=== PATIENT | female | born 1985 | race Caucasian/White ===

== ENCOUNTER 2019-01-24 02:23 | Emergency (ER) | payer OTHER ==
[~2019-01-24] VITALS: Ht 167.6 cm; Wt 129.3 kg
[2019-01-24] MEDS ORDERED: IBUPROFEN200 MG PO (02:29)
[2019-01-24] MEDS ORDERED: ROBITUSSIN COU1 EACH PO (02:30)
[2019-01-24] MEDS ORDERED: ZITHROMAX250 MG PO (02:45)
== END 2019-01-24 02:56 | disposition home or self-care (01) ==
LOC: ED 02:23
DX: H66.91 Otitis media, unspecified, right ear (principal); Z88.0 Allergy status to penicillin
CPT/HCPCS: 99282

== ENCOUNTER 2020-04-07 00:02 | Inpatient (IN) | payer OTHER ==
--- OUTSIDE RECORDS SUMMARY | ~2020-04-07 | XMS | Encounter Summary ---
Demographics + + + | Address | [address] | | | [place] [address] | + + + | Home Phone | | + + + | Preferred Language | Unknown | + + + | Marital Status | | + + + | Gnosticism Affiliation | Unknown | + + + | Race | Unknown | + + + | Ethnic Group | Unknown | + + + Author + + + | Author | [facility] | | | and [place] | + + + | Organization | [facility] | | | and [place] | + + + | Address | Unknown | + + + | Phone | Unavailable | + + + Support + + + + + | Name | Relationship | Address | Phone | + + + + + | Catracho Posey | ECON | [address] | | | | | [place] [address] | | + + + + + Care Team Providers + +------+ + | Care Insulation Board Coater Operator Name | Role | Phone | + +------+ + PCP | Unavailable | + +------+ + Encounter Details +--------+ + + + + | Date | Type | Department | Care Team | Description | +--------+ + + + + | 10/08/ | Hospital | [facility] | Conversion | | | 2011 | Encounter | [facility] | Transaction, | | | | | ULTRASOUND [address] | Provider Unknown | | | | | [address] [facility] | [phone] | | | | | [place] | | | | | | [address] | Sherif Gunn MD | | | | | [phone] | [address] | | | | | | [address], | | | | | | [place] [address] | | | | | | [phone] | | | | | | | | +--------+ + + + + Social History + +-------+ +--------+------+ | Tobacco Use | Types | Packs/Day | Years | Date | | | | | Used | | + +-------+ +--------+------+ | Never Assessed | | | | | + +-------+ +--------+------+ + + + | Sex Assigned at | Date Recorded | | | | + + + | Not on file | | + + + + + + + | Job Start Date | Occupation | Industry | + + + + | Not on file | Not on file | Not on file | + + + + + + + + | Travel History | Travel Start | Travel End | + + + + + + | No recent travel history available. | + + documented as of this encounter Plan of Treatment Not on filedocumented as of this encounter Visit Diagnoses Not on filedocumented in this encounter"
--- OUTSIDE RECORDS SUMMARY | ~2020-04-07 | XMS | Encounter Summary ---
Demographics + + + | Address | [address] | | | [place] [address] | + + + | Home Phone | | + + + | Preferred Language | Unknown | + + + | Marital Status | | + + + | Congregational Affiliation | Unknown | + + + | Race | Unknown | + + + | Ethnic Group | Unknown | + + + Author + + + | Author | [facility] | | | and [place] | + + + | Organization | [facility] | | | and [place] | + + + | Address | Unknown | + + + | Phone | Unavailable | + + + Support + + + + + | Name | Relationship | Address | Phone | + + + + + | Catracho Posey | ECON | [address] | | | | | [place] [address] | | + + + + + Care Team Providers + +------+ + | Care Surgical Device Sales Representative Name | Role | Phone | + +------+ + PCP | Unavailable | + +------+ + Encounter Details +--------+ + + + + | Date | Type | Department | Care Team | Description | +--------+ + + + + | 10/13/ | Hospital | [facility] | Felicia Ritchie | | | 2011 | Encounter | [facility] | [address] | | | | | [address] | [address] | | | | | [address] | [place] [address] | | | | | [place], [place] | [phone] | | | | | [address] | | | | | | [phone] | | | +--------+ + + + [...] + + documented as of this encounter Discharge Summaries Felicia Ritchie - 10/15/2012 8:46 AM PSTFormatting of this note might be differen t from the original. Discharge Summaries by Felicia Ritchie MD at 10/15/12845 Author: Felicia Ritchie MD Service: (none) Author Type: Physician Filed: 10/15/12845 Date of Service: 10/15/12845 Status: Signed Solution Maker: Felicia Ritchie MD (Physician) Pt was seen and evaluated on L and D Triage area Pls see detailed note on chart Improved D/c home F/U on scheduled appt in office. documented in t his encounter Progress Notes Felicia Ritchie - 10/13/2012 7:13 PM PSTFormatting of this note might be differen t from the original. Progress Notes by Felicia Ritchie MD at 10/13/121912 Author: Felicia Ritchie MD Service: (none) Author Type: Physician Filed: 10/15/12 0846 Date of Service: 10/13/121912 Status: Addendum Solution Maker: Felicia Ritchie MD (Physician) Related Notes: Original Note by Felicia Ritchie MD (Physician) filed at 10/13/121914 [facility]: Obstetrics & Gynecology Note HISTORY OF PRESENT ILLNESS: Nancy Posey 27 y.o. OB History Grav Para Term Abortions TAB SAB Ect Mult Living 1 38weeks with a Patient's last menstrual period was 01/21/2012., and VIDHI 10/27/2012, by Last Menstru al Period presents to Labor and Delivery with increased swelling and borderline BPs Pt denies any contractions, leaking, bleeding. Good movements. Patient Active Problem List Diagnoses Supervision of normal first Rh negative, antepartum Oligohydramnios antepartum Decreased movement No current facility-administered medications on file prior to encounter. Current Outpatient Prescriptions on File Prior to Encounter Medication Sig Dispense Refill albuterol (PROVENTIL,VENTOLIN) 90 MCG/ACT inhaler Inhale 2 puffs into the lungs every 8 (eight) hours as needed for Wheezing. 17 g 2 Vit w/Kp-Wrmezpwxm-DG (PRENATE ELITE) 27-0.6-0.4 MG tablet Take 1 tablet by mo ut daily. 30 tablet 11 Allergies Allergen Reactions Penicillins Other (See Comments) Pt is unsure of reaction. Reaction occurred when she was young Past Medical History Diagnosis Date MTHFR (methylene THF reductase) deficiency and homocystinuria No past surgical history on file. Family History Problem Relation Age of Onset Cancer Mother 50 Breast cancer History Substance Use Topics Smoking status: Never Smoker Smokeless tobacco: Never Used Alcohol Use: No Filed Vitals: 10/13/12 1839 BP: 126/77 Pulse: 78 Lab Results Component Value Date WBC 8.0 10/13/2012 Lab Results Component Value Date RBC 4.03 10/13/2012 Lab Results Component Value Date HCT 33.6* 10/13/2012 Lab Results Component Value Date HGB 11.6 10/13/2012 Lab Results Component Value Date PLT 305 10/13/2012 Lab Results Component Value Date ABORH Value: A NEGATIVE Testing performed at [facility], [address] [place] [address] 04/08/2012 Complete ROS done- all systems neg except as noted in HPI above PHYSICAL EXAMINATION BP 126/77 | Pulse 78 | LMP 01/21/2012 | ? Yes GENERAL: The patient is well oriented to time, person, and place. HEENT: Normocephalic, atraumatic. NECK: Supple. No thyroid enlargement LUNGS: effort nl HEART: Pulse reg ABDOMEN: Fundal height term , Uterine contractions None ,FHT's 140 with good short term an d terminologist variability. Category 1. movement appreciated. Reactive NST Bowel sounds are present in all 4 quadrants. PELVIC- deferred EXTREMITIES: No pedal edema, NEUROLOGIC: No focal neurologic deficits.aaox3 SKIN: No rashes or jaundice are noted. Results Procedure Component Value Units Date/Time Uric acid [[id number]] Collected:10/13/121799 Specimen Information:Blood Updated:10/13/121848 URIC ACID 3.3 mg/dL BUN [[id number]] (Abnormal) Collected:10/13/121799 Specimen Information:Blood Updated:10/13/121848 BUN 6 (L) mg/dL Creatinine, serum [[id number]] Collected:10/13/121799 Specimen Information:Blood Updated:10/13/121848 CREATININE 0.54 mg/dL AST [[id number]] Collected:10/13/121799 Specimen Information:Blood Updated:10/13/121848 AST 11 U/L Lactate dehydrogenase [[id number]] Collected:10/13/121799 Specimen Information:Blood Updated:10/13/121848 LDH 132 U/L CBC w/no diff [[id number]] (Abnormal) Collected:10/13/121799 WBC 8.0 K/uL Updated:10/13/121821 RBC 4.03 M/uL HGB 11.6 g/dL HCT 33.6 (L) % MCV 83.5 fl MCH 28.9 pg MCHC 34.6 g/dL RDW SD 42.9 fl PLT 305 K/uL MPV 7.7 fl IMPRESSION/PLAN: No evidence of PEC at this time Pt discharged home Will start 24HUP F/U in 3d in office FELICIA RITCHIE MD 10/13/2012 documented in t his encounter Plan of Treatment Not on filedocumented as of this encounter Visit Diagnoses Not on filedocumented in this encounter"
--- OUTSIDE RECORDS SUMMARY | ~2020-04-07 | XMS | Encounter Summary ---
Demographics + + + | Address | [address] | | | [place] [address] | + + + | Home Phone | | + + + | Preferred Language | Unknown | + + + | Marital Status | | + + + | Yazidism Affiliation | Unknown | + + + | Race | Unknown | + + + | Ethnic Group | Unknown | + + + Author + + + | Author | [facility] | | | and [place] | + + + | Organization | [facility] | | | and [place] | + + + | Address | Unknown | + + + | Phone | Unavailable | + + + Support + + + + + | Name | Relationship | Address | Phone | + + + + + | Catracho Posey | ECON | [address] | | | | | [place] [address] | | + + + + + Care Team Providers + +------+ + | Care Lab Manager Name | Role | Phone | + +------+ + | No, Physician | PCP | Unavailable | + +------+ + Encounter Details +--------+ + + + + | Date | Type | Department | Care Team | Description | +--------+ + + + + | 02/28/ | Anesthesia | [place] [facility] | [facility] | | | 2017 | Event | [facility] | L, DO [address] | | | | | [address] | [place] | | | | | [place] | [address] | | | | | [address] | | | | | | [phone] | | | +--------+ + + + + Anesthesia Record + + + + + | Procedure Name | Responsible | Anesthesia Start | Anesthesia Stop Time | | | Anesthesiologist | Time | | + + + + + | LAPAROSCOPIC | Caio Tipton, | 02/28/18 1434 | 02/28/18 1535 | | CHOLECYSTECTOMY (N/A | DO | | | | Gallbladder) | | | | + + + + + +----+---+ + + | Da | T | Event | Comment | | te | i | | | | | m | | | | | e | | | +----+---+ + + | 03 | 1 | An Checkout | Pre-use anesthesia machine/equipment checkout. | | /3 | 4 | | | | 0/ | 2 | | | | 20 | 4 | | | | 18 | | | | +----+---+ + + | | 1 | Antibiotic | | | | 4 | Given | | | | 3 | | | | | 1 | | | +----+---+ + + | | 1 | An Start | Reassessment prior to anesthesia induction/procedure. | | | 4 | | | | | 3 | | | | | 4 | | | +----+---+ + + | | 1 | Preoxygenat | | | | 4 | ed | | | | 3 | | | | | 4 | | | +----+---+ + + | | 1 | An | | | | 4 | Induction | | | | 3 | | | | | 8 | | | +----+---+ + + | | 1 | An | | | | 4 | Intubation | | | | 3 | | | | | 8 | | | +----+---+ + + | | 1 | Pre-Procedu | | | | 4 | ral Timeout | | | | 5 | Completed | | | | 0 | | | +----+---+ + + | | 1 | First | | | | 4 | Inc/Proc St | | | | 5 | | | | | 2 | | | +----+---+ + + | | 1 | Breathing | | | | 5 | Spontaneous | | | | 2 | ly | | | | 9 | | | +----+---+ + + | | 1 | Oropharynx | | | | 5 | Suctioned | | | | 2 | | | | | 9 | | | +----+---+ + + | | 1 | Moving | | | | 5 | Purposefull | | | | 2 | y | | | | 9 | | | +----+---+ + + | | 1 | Extubated | | | | 5 | Awake | | | | 2 | | | | | 9 | | | +----+---+ + + | | 1 | an stop | | | | 5 | data | | | | 2 | | | | | 9 | | | +----+---+ + + | | 1 | An Stop | Patient handed off to recovery nurse. | | | 3 | | | | | 5 | | | +----+---+ + + | | 1 | | | | | 5 | | | | | 3 | | | | | 7 | | | +----+---+ + + +------+ | Meds | +------+ + +---------+ | Name | Total | + +---------+ | lidocaine 2% | 100 mg | + +---------+ | fentaNYL | 250 mcg | + +---------+ | propofol | 200 mg | + +---------+ | rocuronium 10 mg/mL | 30 mg | + +---------+ | dexamethasone 10 mg/mL | 8 mg | + +---------+ | ondansetron | 4 mg | + +---------+ | ketorolac (30 mg/mL) | 30 mg | + +---------+ | clindamycin in dextrose (CLEOCIN) | 900 mg | | IVPB 900 mg | | + +---------+ | lactated ringers (LR) infusion | 500 mL | + +---------+ + + | Name | + + | N2O Flow Rate (L/Min) | + + | O2 Flow Rate (L/Min) | + + | Insp O2 | + + | Exp N2O | + + | Exp SEV | + + | Exp ISO | + + | Exp MARGARET | + + | Air Flow Rate (L/Min) | + + + + | No blood administrations on file. | + + +--------+ + + + | Type | Details | Placement | Removal | +--------+ + + + | Periph | 02/26/18; 1750; Left; Mid; | 02/26/18 1750 by | 02/28/18 173 by | | eral | Antecubital; [id number] | Jemima Christian RN | Yandy Coy RN | | IV | catheter system; 20 gauge; | | | | | Hematology, Chemistry, | | | | | Coagulation; healing within | | | | | expectations; 02/28/18; 1735 | | | +--------+ + + + | Airway | Placement Date: 02/28/18; | 02/28/181437 by | 02/28/18 1529 by | | | Placement Time: 143 (created via | Ca[facility] Tipton, | [facility]io T[facility], | | | procedure documentation); Mask | DO | DO | | | Ventilation: EZ; Airway Grade: | | | | | 2a; Successful Technique: Mac; | | | | | Laryngoscope Blade Size: 3; | | | | | Attempts: 1; Airway Type: | | | | | endotracheal; Size: 7; Trauma: | | | | | none; Other Equipment: stylette; | | | | | Placement Check: exhaled CO2 | | | | | detection device, bilateral chest | | | | | rise; Removal Date: 02/28/18; | | | | | Removal Time: 1529 | | | +--------+ + + + | Read | 02/28/18; 1445; Right; upper; | 02/28/18 1445 by | 02/28/18 1740 by | | only - | abdomen; laparoscopic puncture; | Yandy Coy RN | Yandy Coy RN | | | 02/28/18; 1740 | | | | Incisi | | | | | on | | | | +--------+ + + + | Read | 02/28/18; 1510; abdomen; healing | 02/28/18 1510 by | 02/28/18 1740 by | | only - | within expectations; 02/28/18; | Jany Rider RN | Yandy Coy RN | | | 1740 | | | | Incisi | | | | | on | | | | +--------+ + + + documented in this encounter Social History + +-------+ +--------+------+ | Tobacco Use | Types | Packs/Day | Years | Date | | | | | Used | | + +-------+ +--------+------+ | Never Smoker | | | | | + +-------+ +--------+------+ + +---+---+---+ | Smokeless Tobacco: | | | | | Never Used | | | | + +---+---+---+ + + +---------+ + | Alcohol Use | Drinks/Week | oz/Week | Comments | + + +---------+ + | Yes | | | occasionally | + + +---------+ + + + + | Sex Assigned at [...] Not on filedocumented as of this encounter Procedures + +--------+ + + + | Procedure Name | Priori | Date/Time | Associated Diagnosis | Comments | | | ty | | | | + +--------+ + + + | ANE AIRWAY NOTE | Routin | 02/28/2018 | | Results for this | | | e | 2:46 PM | | procedure are in the | | | | PDT | | results section. | + +--------+ + + + documented in this encounter Results Anesthesia Airway Note (02/28/2018 2:46 PM PDT) + + + | Narrative | Performed At | + + + | [facility] DO 02/28/2018 14:47 Anesthesia Airway | | | Placement 02/28/2018 14:38 Preprocedure check: patient identified, | | | airway assessed, suction, patient reassessment prior to induction, | | | oxygen and airway equipment checked Mask ventilation: easy | | | Successful technique: Mac Laryngoscope blade size: 3 Airway | | | grade: 2a (Partial view of glottis) Other equipment: stylette | | | Attempts: 1 Airway type: endotracheal Size: 7 Cuffed: cuffed | | | Route, reference point: center of mouth Tube secured with: adhesive | | | tape Trauma: none Tube placement verification: carbon dioxide | | | detection and bilateral chest rise Performing provider: SAEED | | | CAIO Bro Electronically Signed by: Caio Tipton DO | | | ESig date/time: 02/28/2018 14:46 | | | | | + + + + + | Procedure Note | + + | Caio Tipton DO - 02/28/2018 2:46 PM PDT Anesthesia Airway Placement02/28/2018 | | 14:38Preprocedure check: patient identified, airway assessed, suction, patient | | reassessment prior to induction, oxygen and airway equipment checkedMask ventilation: | | easySuccessful technique: MacLaryngoscope blade size: 3 Airway grade: 2a (Partial view | | of glottis)Other equipment: styletteAttempts: 1Airway type: endotrachealSize: 7Cuffed: | | cuffedRoute, reference point: center of mouthTube secured with: adhesive tapeTrauma: | | noneTube placement verification: carbon dioxide detection and bilateral chest | | risePerforming provider: CAIO TIPTON LElectronically Signed by: Caio Tipton, | | ESig date/time: 02/28/2018 14:46 | |Attempts: 1 | |Airway type: endotracheal | |Size: 7 | |Cuffed: cuffed | |Route, reference point: center of mouth | |Tube secured with: adhesive tape | |Trauma: none | |Tube placement verification: carbon dioxide detection and bilateral chest rise | |Performing provider: CAIO TIPTON | | | | | |Electronically Signed by: Caio Tipton DO ESi date/time: 02/28/2018 14:46 | | | + + documented in this encounter Visit Diagnoses Not on filedocumented in this encounter Administered Medications + +--------+ +--------+------+------+ | Medication Order | MAR | Action | Dose | Rate | Site | | | Action | Date | | | | + +--------+ +--------+------+------+ | clindamycin in dextrose | Given | 02/29/20 | 900 mg | | | | (CLEOCIN) IVPB 900 mg 900 mg, | | 18 2:31 | | | | | Intravenous, Administer over 60 | | PM PDT | | | | | Minutes, 30 MIN PRE-OP, Starting | | | | | | | 02/28/18 at 1126, For 1 dose, | | | | | | | Indications: Biliary Tract | | | | | | | Infection, Infection | | | | | | + +--------+ +--------+------+------+ +---------+ +--------+ +---+ | New Bag | 02/29/20 | 900 mg | 50 mL/hr | | | | 18 2:20 | | | | | | PM PDT | | | | +---------+ +--------+ +---+ +---+---+ | | | +---+---+ + +-------+ +------+---+---+ | dexamethasone (DECADRON) 10 | Given | 02/29/20 | 8 mg | | | | mg/mL injection Intravenous, | | 18 3:19 | | | | | PRN, Starting 02/28/18 at | | PM PDT | | | | | 1519, Anesthesia Intra-op | | | | | | + +-------+ +------+---+---+ +---+---+ | | | +---+---+ + +-------+ +--------+---+---+ | fentaNYL (PF) injection | Given | 02/29/20 | 50 mcg | | | | Intravenous, PRN, Pain, Starting | | 18 3:18 | | | | | 02/28/18 at 1435, Anesthesia | | PM PDT | | | | | Intra-op | | | | | | + +-------+ +--------+---+---+ +-------+ +---------+---+---+ | Given | 02/29/20 | 50 mcg | | | | | 18 2:47 | | | | | | PM PDT | | | | +-------+ +---------+---+---+ | Given | 02/29/20 | 100 mcg | | | | | 18 2:38 | | | | | | PM PDT | | | | +-------+ +---------+---+---+ +---+---+ | | | +---+---+ + +-------+ +-------+---+---+ | ketorolac (TORADOL) injection | Given | 02/29/20 | 30 mg | | | | Intravenous, PRN, Pain, Starting | | 18 3:19 | | | | | 02/28/18 at 1519, Anesthesia | | PM PDT | | | | | Intra-op | | | | | | + +-------+ +-------+---+---+ +---+---+ | | | +---+---+ + +---------+ +---+---+---+ | lactated ringers (LR) infusion | New Bag | 02/29/20 | | | | | at 10-100 mL/hr, Intravenous, | | 18 2:34 | | | | | CONTINUOUS, Starting Sat02/28/18 | | PM PDT | | | | | at 0945, TKO., Pre-op | | | | | | + +---------+ +---+---+---+ +---+---+ | | | +---+---+ + +-------+ +--------+---+---+ | lidocaine 2% injection PRN, | Given | 02/29/20 | 100 mg | | | | Starting Sat02/28/18 at 1438, | | 18 2:38 | | | | | Anesthesia Intra-op | | PM PDT | | | | + +-------+ +--------+---+---+ +---+---+ | | | +---+---+ + +-------+ +------+---+---+ | ondansetron (ZOFRAN) injection | Given | 02/29/20 | 4 mg | | | | Intravenous, PRN, Nausea, | | 18 3:19 | | | | | Vomiting, Starting Sat18 at | | PM PDT | | | | | 1519, Anesthesia Intra-op | | | | | | + +-------+ +------+---+---+ +---+---+ | | | +---+---+ + +-------+ +--------+---+---+ | propofol (DIPRIVAN) injection | Given | 02/29/20 | 200 mg | | | | Intravenous, PRN, Starting Sat | | 18 2:38 | | | | | 02/28/18 at 1438, Anesthesia | | PM PDT | | | | | Intra-op | | | | | | + +-------+ +--------+---+---+ +---+---+ | | | +---+---+ + +-------+ +-------+---+---+ | rocuronium (ZEMURON) injection | Given | 02/29/20 | 30 mg | | | | Intravenous, PRN, Starting Fri | | 18 2:38 | | | | | 02/28/18 at 1438, Anesthesia | | PM PDT | | | | | Intra-op | | | | | | + +-------+ +-------+---+---+ +---+---+ | | | +---+---+ documented in this encounter"
--- OUTSIDE RECORDS SUMMARY | ~2020-04-07 | XMS | Encounter Summary ---
Demographics + + + | Address | [address] | | | [place] [address] | + + + | Home Phone | | + + + | Preferred Language | Unknown | + + + | Marital Status | | + + + | Denominational Affiliation | Unknown | + + + | Race | Unknown | + + + | Ethnic Group | Unknown | + + + Author + + + | Author | [facility] | | | and [place] | + + + | Organization | [facility] | | | and [place] | + + + | Address | Unknown | + + + | Phone | Unavailable | + + + Support + + + + + | Name | Relationship | Address | Phone | + + + + + | Catracho Posey | ECON | [address] | | | | | [place] [address] | | + + + + + Care Team Providers + +------+ + | Care Recreation Engineer Name | Role | Phone | + +------+ + | No, Physician | PCP | Unavailable | + +------+ + Encounter Details +--------+ + + + + | Date | Type | Department | Care Team | Description | +--------+ + + + + | 09/30/ | Orders Only | [facility] | Sherif Gunn, | | | 2011 | | [facility]OC[facility] | MD [address] | | | | | [facility] | [address] | | | | | [address] | [place] [address] | | | | | [address], | [phone] | | | | | [place] [address] | | | | | | [phone] | | | +--------+ + + + [...] + + documented as of this encounter Progress Notes Sherif Gunn MD - 09/30/2012 11:43 AM PDT Progress Notes by Sherif Gunn MD at 09/30/12 1143 Author: Sherif Gunn MD Service: (none) Author Type: Physician Filed: 10/05/122013 Encounter Date: 09/30/2012 Status: Signed Tariff Compiling Clerk: Sherif Gunn MD (Physician) . No HB. U/S EFW 7lbs 5oz, EFW 3316g, 80th%tile, ANIL 14.4 cm, placenta anterior. GBS c ollected today. Taking PNV daily. (+) movement. May have some spotting from exam today . F/u in one wk. documented in thi s encounter Plan of Treatment Not on filedocumented as of this encounter Procedures + +--------+ + + + | Procedure Name | Priori | Date/Time | Associated Diagnosis | Comments | | | ty | | | | + +--------+ + + + | STREP B SCREEN | Routin | 09/30/2012 | | Results for this | | | e | 12:11 PM | | procedure are in the | | | | PDT | | results section. | + +--------+ + + + documented in this encounter Results Strep B screen (09/30/2012 12:11 PM PDT) + + | Specimen | + + | | + + + + + | Narrative | Performed At | + + + | Specimen Description VAGINAL/RECTAL SWAB | EXTERNAL LAB | | Testing performed at | | | [facility];[address];[place] [address] CULTURE | | | NO GROUP B STREP ISOLATED | | | Testing performed at [facility];[address] | | [address] [facility];[place] [address] REPORT STATUS | | | 10/03/2012 FINAL | | + + + + +---------+ + + | Performing | Address | City/State/Zipcode | Phone Number | | Organization | | | | + +---------+ + + | EXTERNAL LAB | | | | + +---------+ + + documented in this encounter Visit Diagnoses Not on filedocumented in this encounter"
--- OUTSIDE RECORDS SUMMARY | ~2020-04-07 | XMS | Encounter Summary ---
Demographics + + + | Address | [address] | | | [place] [address] | + + + | Home Phone | | + + + | Preferred Language | Unknown | + + + | Marital Status | | + + + | Sabianist Affiliation | Unknown | + + + | Race | Unknown | + + + | Ethnic Group | Unknown | + + + Author + + + | Author | [facility] | | | and [place] | + + + | Organization | [facility] | | | and [place] | + + + | Address | Unknown | + + + | Phone | Unavailable | + + + Support + + + + + | Name | Relationship | Address | Phone | + + + + + | Catracho Posey | ECON | [address] | | | | | [place] [address] | | + + + + + Care Team Providers + +------+ + | Care Cafe Assistant Name | Role | Phone | + +------+ + PCP | Unavailable | + +------+ + Encounter Details +--------+ + + + + | Date | Type | Department | Care Team | Description | +--------+ + + + + | 12/28/ | Hospital | [facility] | Erin Eason | | | 2017 | Encounter | [facility] | [address] | | | | | [facility] [address] | [facility] [facility], | | | | | [address]TH [facility] [place], | [place] [address] | | | | | [place] [address] | [phone] | | | | | [phone] | | | +--------+ + + + [...]
--- OUTSIDE RECORDS SUMMARY | ~2020-04-07 | XMS | Encounter Summary ---
Demographics + + + | Address | [address] | | | [place] [address] | + + + | Home Phone | | + + + | Preferred Language | Unknown | + + + | Marital Status | | + + + | Adventist Affiliation | Unknown | + + + | Race | Unknown | + + + | Ethnic Group | Unknown | + + + Author + + + | Author | [facility] | | | and [place] | + + + | Organization | [facility] | | | and [place] | + + + | Address | Unknown | + + + | Phone | Unavailable | + + + Support + + + + + | Name | Relationship | Address | Phone | + + + + + | Catrahco Daniel | ECON | [address] | | | | | [place] [address] | | + + + + + Care Team Providers + +------+ + | Care Supervisor Soakers Name | Role | Phone | + +------+ + | No, Physician | PCP | Unavailable | + +------+ + Encounter Details +--------+ + + + + | Date | Type | Department | Care Team | Description | +--------+ + + + + | 10/08/ | Orders Only | [facility] | Sherif Gunn, | | | 2011 | | ASSOCIATED | MD [address] | | | | | [facility] | [address] | | | | | [address] | [place] [address] | | | | | [address] [place], | [phone] | | | | | [place] [address] | | | | | | [phone] | | | +--------+ + + + [...] | + +--------+ + + + | US BIOPHYSICAL | Routin | 10/08/2012 | | Results for this | | PROFILE WO NON | e | 12:59 PM | | procedure are in the | | STRESS | | PST | | results section. | + +--------+ + + + documented in this encounter Results US BPP wo Non Stress (10/08/2012 12:59 PM PST) + + | Specimen | + + | | + + + + + | Narrative | Performed At | + + + | RAJANI DANIEL US BIOPHYSICAL PROFILE WO NON STRESS TESTING | | | 10/08/2012 12:24 PM HISTORY: 27 years. Female. | | | Oligohydramnios. Biophysical profile. one. VIDHI of | | | October 27, 2012 at 37 weeks and two days. TECHNIQUE: Imaging | | | was performed using a curved array transabdominal transducer. | | | Grayscale, color flow and M-mode techniques were utilized. | | | COMPARISON: October 05, 2012 FINDINGS: The position: | | | Cephalic. Placental position: Anterior. Amniotic fluid index: | | | 11.3 cm. Previous amniotic fluid index measured 7.7 cm on 10/05/12. | | | The largest single pocket of amniotic fluid measures 4.9 cm. | | | BIOPHYSICAL PROFILE: Movement = 2 Tone = 2 Breathing = 2 AFV = 2 | | | Biophysical Profile Score = 8/8 heart rate = 132 beats/min | | | IMPRESSION: 1. Biophysical Profile Score = 8/8 2. heart | | | rate = 132 beats/min 3. Amniotic fluid index: 11.3 cm. | | | | | + + + + + | Procedure Note | + + | Chadd Torrez Conversion - 07/25/2019 2:44 AM PDT [facility] WRIGHT BIOPHYSICAL | | PROFILE WO NON STRESS ERALPDF25/7/2012 12:24 PM HISTORY:27 years. Female. | | Oligohydramnios. Biophysical profile. one. VIDHI of October 27, 2012 at 37 | | weeks and two days. TECHNIQUE:Imaging was performed using a curved array transabdominal | | transducer. Grayscale, color flow and M-mode techniques were utilized. | | COMPARISON:October 05, 2012 FINDINGS:The position: Cephalic.Placental position: | | Anterior. Amniotic fluid index: 11.3 cm.Previous amniotic fluid index measured 7.7 cm on | | 10/05/12.The largest single pocket of amniotic fluid measures 4.9 cm. BIOPHYSICAL | | PROFILE:Movement = 2Tone = 2Breathing = 2AFV = 2Biophysical Profile Score = 8/8 | | heart rate = 132 beats/min IMPRESSION:1. Biophysical Profile Score = 8/82. heart | | rate = 132 beats/min3. Amniotic fluid index: 11.3 cm. | | | |FINDINGS: | |The position: Cephalic. | |Placental position: Anterior. | | | |Amniotic fluid index: 11.3 cm. | |Previous amniotic fluid index measured 7.7 cm on 10/05/12. | |The largest single pocket of amniotic fluid measures 4.9 cm. | | | | | |BIOPHYSICAL PROFILE: | |Movement = 2 | |Tone = 2 | |Breathing = 2 | |AFV = 2 | |Biophysical Profile Score = 8/8 | | | | heart rate = 132 beats/min | | | |IMPRESSION: | |1. Biophysical Profile Score = 8/8 | |2. heart rate = 132 beats/min | |3. Amniotic fluid index: 11.3 cm. | | | | | + + documented in this encounter Visit Diagnoses Not on filedocumented in this encounter"
--- OUTSIDE RECORDS SUMMARY | ~2020-04-07 | XMS | Clinical Summary ---
Demographics + + + | Address | [address] | | | [place] [address] | + + + | Home Phone | | + + + | Preferred Language | Unknown | + + + | Marital Status | Single | + + + | Religion Affiliation | Unknown | + + + | Race | Unknown | + + + | Ethnic Group | Unknown | + + + Author + + + | Author | [facility] (Historical as of | | | 07-18-19) | + + + | Organization | [facility] (Historical as of | | | 07-18-19) | + + + | Address | Unknown | + + + | Phone | Unavailable | + + + Support + + + + + | Name | Relationship | Address | Phone | + + + + + | Rajani Daniel | ECON | [address], | | | | | [place] [address] | | + + + + + Care Team Providers + +------+ + | Care Fuel Conversion Technician Name | Role | Phone | + +------+ + | Dr. Jignesh | PP | Unavailable | + +------+ + Allergies + + + + + + | Active Allergy | Reactions | Severity | Noted | Comments | | | | | Date | | + + + + + + | Penicillins | Other (See Comments) | Medium | 04/08/20 | Pt is unsure of | | | | | 12 | reaction. Reaction | | | | | | occurred when she | | | | | | was young | + + + + + + Current Medications + + +-------+---------+------+------+-------+ | Prescription | Sig. | Disp. | Refills | Star | End | Statu | | | | | | t | Date | s | | | | | | Date | | | + + +-------+---------+------+------+-------+ | ferrous sulfate | Take 325 mg by mouth | | | | | Activ | | 325 (65 FE) MG | daily with | | | | | e | | tablet | breakfast. | | | | | | + + +-------+---------+------+------+-------+ | methylfolate | Take 7.5 mg by mouth | | | | | Activ | | (DEPLIN) 7.5 MG TABS | daily. | | | | | e | + + +-------+---------+------+------+-------+ Active Problems + + + | Problem | Noted Date | + + + | IUD check up | 01/20/2013 | + + + + + | Overview: Mirena in place; mild discomfort with intercourse | | when he is on top and with deep penetration; can consider US if | | sxs persist/worsen | + + + + + | LSIL (low grade squamous intraepithelial lesion) on Pap smear | 01/20/2013 | + + + | Encounter for IUD insertion | 12/17/2012 | + + + + + | Overview: Mirena insert 12/17/2012 | + + Resolved Problems + + + + | Problem | Noted | Resolved | | | Date | Date | + + + + | Transient hypertension of | 10/20/20 | | | | 12 | 3 | + + + + | Oligohydramnios antepartum | 10/06/20 | | | | 12 | 3 | + + + + | Decreased movement | 10/06/20 | | | | 12 | 3 | + + + + | Rh negative, antepartum | 04/09/20 | | | | 12 | 3 | + + + + | Supervision of normal first | 04/08/20 | | | | 12 | 3 | + + + + Immunizations +------+ + + | Name | Dates Previously Given | Next Due | +------+ + + | Tdap | 10/27/2012 | | +------+ + + Family History + + +------+ + | Medical History | Relation | Name | Comments | + + +------+ + | Other (see comments) | Brother | | MTHR | + + +------+ + | Cancer | Mother | | Breast cancer | + + +------+ + + +------+ + + | Relation | Name | Status | Comments | + +------+ + + | Brother | | | | + +------+ + + | Father | | Alive | | + +------+ + + | Maternal Grandfather | | | | + +------+ + + | Maternal Grandmother | | | | + +------+ + + | Mother | | | | + +------+ + + | Paternal Grandfather | | | | + +------+ + + | Paternal Grandmother | | | | + +------+ + + Social History + +-------+ +--------+------+ [...] + +---------+ + | Alcohol Use | Drinks/We | oz/Week | Comments | | | ek | | | + + +---------+ + | No | | | | + + +---------+ + + + + | Sex Assigned at | Date Recorded | | | | + + + | Not on file | | + + + Last Filed Vital Signs + + + + | Vital Sign | Reading | Time Taken | + + + + | Blood Pressure | 120/78 | 01/20/2013 1:37 PM PST | + + + + | Pulse | 81 | 10/28/2012 7:45 AM PST | + + + + | Temperature | 36.9 C (98.5 F) | 10/28/2012 7:45 AM PST | + + + + | Respiratory Rate | 20 | 10/28/2012 7:45 AM PST | + + + + | Oxygen Saturation | 100% | 10/26/2012 2:43 PM PST | + + + + | Inhaled Oxygen | - | - | | Concentration | | | + + + + | Weight | 113.4 kg (250 lb) | 01/20/2013 1:37 PM PST | + + + + | Height | 167.6 cm (5' 6") | 01/20/2013 1:37 PM PST | + + + + | Body Mass Index | 40.35 | 01/20/2013 1:37 PM PST | + + + + Plan of Treatment + + + + + | Health Maintenance | Due Date | Last Done | Comments | + + + + + | Cervical Cancer | | 12/15/2012 | | | Screening (Pap) | 8 | | | + + + + + | Vaccine: Influenza | | | | | (Season Ended) | 0 | | | + + + + + | Vaccine: | | 10/27/2012 | | | Dtap/Tdap/Td (2 - | 2 | | | | Td) | | | | + + + + + Results Not on filefrom Last 3 Months Insurance + +--------+ +------+-------+ + | Payer | Benefi | Subscriber | Type | Phone | Address | | | t Plan | ID | | | | | | / | | | | | | | Group | | | | | + +--------+ +------+-------+ + | MEDICAID | MEDICA | [id number] | | | [address] | | | [place] | | | | [place] | | | FAMILY | | | | [address] | | | | | | | | | | [employer]AN[employer] | | | | | | | NG | | | | | | | SERVIC | | | | | | | ES | | | | | | | ONLY | | | | | + +--------+ +------+-------+ + + +--------+ +--------+ + + | Guarantor Name | Accoun | Relation to | Date | Phone | Billing Address | | | t Type | Patient | of | | | | | | | | | | + +--------+ +--------+ + + | RAJANI DANIEL | Person | Self | [birth year] | Home: | [address] | | | al/Fam | | 1984 | [phone] | [place] | | | [place] | | | [phone] | [address] | + +--------+ +--------+ + +
--- OUTSIDE RECORDS SUMMARY | ~2020-04-07 | XMS | Encounter Summary ---
Demographics + + + | Address | [address] | | | [place] [address] | + + + | Home Phone | | + + + | Preferred Language | Unknown | + + + | Marital Status | | + + + | Islam Affiliation | Unknown | + + + | Race | Unknown | + + + | Ethnic Group | Unknown | + + + Author + + + | Author | [facility] | | | and [place] | + + + | Organization | [facility] | | | and [place] | + + + | Address | Unknown | + + + | Phone | Unavailable | + + + Support + + + + + | Name | Relationship | Address | Phone | + + + + + | Catracho Posey | ECON | [address] | | | | | [place] [address] | | + + + + + Care Team Providers + +------+ + | Care Car Changer Name | Role | Phone | + +------+ + | No, Physician | PCP | Unavailable | + +------+ + Encounter Details +--------+ + + + + | Date | Type | Department | Care Team | Description | +--------+ + + + + | 09/30/ | Orders Only | [facility] | Sherif Gunn, | | | 2010 | | ASSOCIATED | MD [address] | | | | | [facility] | [address] | | | | | [address] | [place] [address] | | | | | [address] [place] [address], | [phone] | | | | | [place] [address] | | | | | | [phone] | | | +--------+ + + + [...] + +--------+ + + + | US OB FOLLOW UP | Routin | 09/30/2012 | | Results for this | | TRANSABDOMINAL | e | 11:22 AM | | procedure are in the | | | | PDT | | results section. | + +--------+ + + + documented in this encounter Results US OB Follow Up Transabdominal (09/30/2012 11:22 AM PDT) + + | Specimen | + + | | + + + + + | Narrative | Performed At | + + + | Indication: Supervision of normal first . | | | History: Age: 27 years. : 1 Para: 0. | | | Dating: Stated EDC : | | | | | | EDC: 10/27/2012 GA by | | | stated EDC: 36w1d Current Scan On : | | | 09/30/2012 EDC: | | | 10/16/2012 | | | | | | GA BY CURRENT Scan :37w5d | | | Best Overall Assessment: 09/30/2012 EDC: | | | 10/27/2012 | | | | | | Assessed Ga : 36w1d The | | | calculation of the gestational age by current scan was based on BPD, | | | HC, AC and FL. The Best Overall Assessment is based on the stated | | | EDC. Anatomy Scan: Sierra gestation. | | | Biometry: Measurements used for the estimation of the | | | gestational age are bolded. BPD 93.4 | | | mm 95th% 38w0d (37w0d to | | | 39w0d) HC 333.1 mm | | | 67th% 38w0d (35w2d to 40w5d) AC | | | 343.9 mm >95th% | | | 38w2d (37w2d to 39w2d) FL 71.2 | | | mm 55th% 36w3d | | | (33w3d to 39w4d) OFD 116.3 mm | | | 64th% EFW (lbs/oz) 7 lbs 5 ozs EFW (g) | | | 3316 g 80th% | | | heart activity: present. heart rate: 130 bpm. | | | presentation: cephalic. Amniotic fluid: normal. ANIL 14.4 cm. | | | Placenta: anterior. Summary of Ultrasound Findings: | | | Transabdominal US. U/S machine: [employer]ick[employer]Tickets E8 - [employer] | | | for Women. U/S view: adequate. Report | | | Summary: Recommendations: LGA, EFW 3316 gms, 80%ile, with ANIL 14. | | | Vtx. AC is > 95%, but BPD is also 95%. | | + + + + + | Procedure Note | + + | Chadd Torrez Conversion - 07/25/2019 2:44 AM PDT Indication: Supervision of normal first | | . History: Age: 27 years. : 1 Para: | | 0. Dating:Stated EDC : | | EDC: 10/27/2012 GA by stated EDC: | | [id number] Scan On : 09/30/2012 | | EDC: 10/16/2012 | | GA BY CURRENT Scan :[id number] Overall | | Assessment: 09/30/2012 EDC: 10/27/2012 | | Assessed Ga : | | [id number] calculation of the gestational age by current scan was based on BPD, HC, AC | | and FL.The Best Overall Assessment is based on the stated | | EDC. Anatomy Scan:Sierra gestation.Biometry: Measurements | | used for the estimation of the gestational age are bolded.BPD 93.4 | | mm 95th% 38w0d (37w0d to 39w0d)HC 333.1 | | mm 67th% 38w0d (35w2d to 40w5d)AC 343.9 | | mm >95th% 38w2d (37w2d to 39w2d)FL 71.2 | | mm 55th% 36w3d (33w3d to 39w4d)OFD | | 116.3 mm 64th%EFW (lbs/oz) 7 lbs 5 ozsEFW (g) | | 3316 g 80th% heart activity: present. heart rate: 130 | | bpm. presentation: cephalic.Amniotic fluid: normal. ANIL 14.4 cm.Placenta: | | anterior. Summary of Ultrasound Findings:Transabdominal US. U/S machine: [employer]Sanibel Sunglass E8 - | | [employer]. U/S view: adequate. Report | | Summary:Recommendations: LGA, EFW 3316 gms, 80%ile, with ANIL 14. Vtx. AC is > 95%, but | | BPD is also 95%. | | | | heart activity: present. heart rate: 130 bpm. | | presentation: cephalic. | |Amniotic fluid: normal. ANIL 14.4 cm. | |Placenta: anterior. | | | |Summary of Ultrasound Findings: | |Transabdominal US. U/S machine: Bambuseruson E8 - [employer]. U/S view: adequate. | | | | | |Report Summary: | |Recommendations: LGA, EFW 3316 gms, 80%ile, with ANIL 14. Vtx. AC is > 95%, but BPD is als o 95%. | | | | | + + documented in this encounter Visit Diagnoses Not on filedocumented in this encounter"
--- OUTSIDE RECORDS SUMMARY | ~2020-04-07 | XMS | Encounter Summary ---
Demographics + + + | Address | [address] | | | [place] [address] | + + + | Home Phone | | + + + | Preferred Language | Unknown | + + + | Marital Status | | + + + | Alevism Affiliation | Unknown | + + + | Race | Unknown | + + + | Ethnic Group | Unknown | + + + Author + + + | Author | [facility] | | | and [place] | + + + | Organization | [facility] | | | and [place] | + + + | Address | Unknown | + + + | Phone | Unavailable | + + + Support + + + + + | Name | Relationship | Address | Phone | + + + + + | Catracho Posey | ECON | [address] | | | | | [place] [address] | | + + + + + Care Team Providers + +------+ + | Care Solar Sales Manager Name | Role | Phone | + +------+ + PCP | Unavailable | + +------+ + Encounter Details +--------+ + + + + | Date | Type | Department | Care Team | Description | +--------+ + + + + | 01/22/ | Hospital | [facility] | Erin Eason | | | 2017 | Encounter | [facility] | [address] | | | | | [facility] [address] | [address] [facility], | | | | | [address]TH [facility], | [place] [address] | | | | | [place] [address] | [phone] | | | | | [phone] | | | +--------+ + + + [...]
--- OUTSIDE RECORDS SUMMARY | ~2020-04-07 | XMS | Encounter Summary ---
Demographics + + + | Address | [address] | | | [place] [address] | + + + | Home Phone | | + + + | Preferred Language | Unknown | + + + | Marital Status | | + + + | Buddhist Affiliation | Unknown | + + + | Race | Unknown | + + + | Ethnic Group | Unknown | + + + Author + + + | Author | [facility] | | | and [place] | + + + | Organization | [facility] | | | and [place] | + + + | Address | Unknown | + + + | Phone | Unavailable | + + + Support + + + + + | Name | Relationship | Address | Phone | + + + + + | Catracho Posey | ECON | [address] | | | | | [place] [address] | | + + + + + Care Team Providers + +------+ + | Care Knit Goods Press Hand Name | Role | Phone | + +------+ + | No, Physician | PCP | Unavailable | + +------+ + Encounter Details +--------+ + + + + | Date | Type | Department | Care Team | Description | +--------+ + + + + | 06/05/ | Orders Only | [facility] | Sherif Gunn, | | | 2011 | | ASSOCIATED | MD [address] | | | | | [facility] | [address] | | | | | [address] | [place] [address] | | | | | [address], | [phone] | | | | | [place] [address] | | | | | | [phone] | | | +--------+ + + + [...] +--------+ + + + | US OB 14 + WEEKS | Routin | 06/05/2012 | | Results for this | | SINGLE OR FIRST | e | 1:20 PM | | procedure are in the | | GESTATION | | PDT | | results section. | + +--------+ + + + documented in this encounter Results US OB 14 + Week Singl or First Gestation (06/05/2012 1:20 PM PDT) + + | Specimen | + + | | + + + + + | Narrative | Performed At | + + + | Indication: Anatomy survey. Imaging was performed using a curved | | | array transducer. Boswell scale, color doppler and M-Mode techniques | | | were utilized. History: Age: 27 years. | | | Dating: Stated EDC : | | | | | | EDC: 10/27/2012 GA by | | | stated EDC: 19w3d Current Scan On : | | | 06/05/2012 EDC: | | | 10/22/2012 | | | | | | GA BY CURRENT Scan :20w1d | | | Best Overall Assessment: 06/05/2012 EDC: | | | 10/27/2012 | | | | | | Assessed Ga : 19w3d The | | | calculation of the gestational age by current scan was based on BPD, | | | HC, TCD, AC and FL. The Best Overall Assessment is based on the | | | stated EDC. Anatomy Scan: Sierra | | | gestation. Biometry: Measurements used for the estimation of | | | the gestational age are bolded. BPD 48.5 | | | mm 91st% 20w5d | | | (20w1d to 21w2d) HC 175.4 mm | | | 72nd% 20w0d (18w4d to 21w4d) | | | AC 147.8 mm 66th% | | | 20w0d (19w3d to 20w5d) FL | | | 32.7 mm 71st% 20w1d | | | (18w3d to 22w0d) OFD 60.3 | | | mm 79th% 20w0d TCD | | | 19.7 mm 53rd% 19w4d | | | HUM 30.2 mm 67th% | | | 20w0d CM 3.9 mm | | | 20th% heart activity: present. heart rate: | | | 145 bpm. presentation: cephalic. Amniotic fluid: normal. | | | Cord: 3 vessels. Placenta: anterior. Anatomy: Visualized | | | with normal appearance: head, brain, face, abdominal wall, | | | gastrointestinal tract, kidneys, bladder. Not well seen: 4 chamber | | | heart. Genitalia: Male fetus. Extremities: bilateral upper and lower | | | extremities, including hands and feet were visualized. Summary of | | | Ultrasound Findings: Transabdominal US. U/S machine: [employer] USA[employer]Rea[employer]ync E8 - | | | [employer]. U/S view: limited by maternal body | | | habitus. Report Summary: Impression: | | | Difficult exam due to maternal body habitus. Spine, skin line, and | | | heart not well seen. Measurements compatible with dates. | | | Recommendations: Size is consistent with dates. Normal anatomic | | | screen as seen, but need repeat for spine, heart and neck. No | | | previa. Electronically signed by Sherif Gunn MD on | | | 06/05/2012 13:43 | | + + + + + | Procedure Note | + + | Chadd Torrez Conversion - 07/25/2019 2:44 AM PDT Indication: Anatomy survey.Imaging was | | performed using a curved array transducer. Boswell scale, color doppler and M-Mode | | techniques were utilized. History: Age: 27 | | years. Dating:Stated EDC : | | EDC: 10/27/2012 GA by stated EDC: | | [id number] Scan On : 06/05/2012 | | EDC: 10/22/2012 | | GA BY CURRENT Scan :[id number] Overall | | Assessment: 06/05/2012 EDC: 10/27/2012 | | Assessed Ga : | | [id number] calculation of the gestational age by current scan was based on BPD, HC, TCD, | | AC and FL.The Best Overall Assessment is based on the stated | | EDC. Anatomy Scan:Sierra gestation.Biometry: Measurements | | used for the estimation of the gestational age are bolded.BPD 48.5 | | mm 91st% 20w5d (20w1d to 21w2d)HC 175.4 | | mm 72nd% 20w0d (18w4d to 21w4d)AC 147.8 | | mm 66th% 20w0d (19w3d to 20w5d)FL 32.7 | | mm 71st% 20w1d (18w3d to 22w0d)OFD | | 60.3 mm 79th% 12e8fZFI 19.7 mm | | 53rd% 36o2oDRP 30.2 mm 67th% | | 24n6nKF 3.9 mm 20th% heart activity: present. | | heart rate: 145 bpm. presentation: cephalic.Amniotic fluid: normal.Cord: 3 | | vessels.Placenta: anterior. Anatomy:Visualized with normal appearance: head, | | brain, face, abdominal wall, gastrointestinal tract, kidneys, bladder.Not well seen: 4 | | chamber heart.Genitalia: Male fetus.Extremities: bilateral upper and lower extremities, | | including hands and feet were visualized. Summary of Ultrasound Findings:Transabdominal | | US. U/S machine: [employer] E8 - [employer]. U/S view: limited by | | maternal body habitus. Report Summary:Impression: Difficult exam | | due to maternal body habitus. Spine, skin line, and heart not well seen. Measurements | | compatible with dates. Recommendations: Size is consistent with dates. Normal anatomic | | screen as seen, but need repeat for spine, heart and neck. No previa. Electronically | | signed by Sherif Gunn MD on 06/05/2012 13:43 | | | | Anatomy: | |Visualized with normal appearance: head, brain, face, abdominal wall, gastrointestinal trac t, kidneys, bladder. | |Not well seen: 4 chamber heart. | |Genitalia: Male fetus. | |Extremities: bilateral upper and lower extremities, including hands and feet were visualize d. | | | |Summary of Ultrasound Findings: | |Transabdominal US. U/S machine: Four Eyes [employer] E8 - [employer]. U/S view: limited by maternal body habitus. | | | | | |Report Summary: | |Impression: Difficult exam due to maternal body habitus. | | | |Spine, skin line, and heart not well seen. | | | | Measurements compatible with dates. | | | |Recommendations: Size is consistent with dates. Normal anatomic screen as seen, but need r epeat for spine, heart and neck. No previa. | | | | | + + documented in this encounter Visit Diagnoses Not on filedocumented in this encounter"
--- OUTSIDE RECORDS SUMMARY | ~2020-04-07 | XMS | Encounter Summary ---
Demographics + + + | Address | [address] | | | [place] [address] | + + + | Home Phone | | + + + | Preferred Language | Unknown | + + + | Marital Status | | + + + | Cheondoism Affiliation | Unknown | + + + | Race | Unknown | + + + | Ethnic Group | Unknown | + + + Author + + + | Author | [facility] | | | and [place] | + + + | Organization | [facility] | | | and [place] | + + + | Address | Unknown | + + + | Phone | Unavailable | + + + Support + + + + + | Name | Relationship | Address | Phone | + + + + + | Catracho Posey | ECON | [address] | | | | | [place] [address] | | + + + + + Care Team Providers + +------+ + | Care Gate Person Name | Role | Phone | + +------+ + | No, Physician | PCP | Unavailable | + +------+ + Reason for Visit + + + | Reason | Comments | + + + | Chest Pain | | + + + Encounter Details +--------+ + + + + | Date | Type | Department | Care Team | Description | +--------+ + + + + | 02/26/ | Hospital | [facility] | Neil Delgado | Acute gallstone | | 2018 - | Encounter | HOSPITAL MED SURG | MD Jose [address] | pancreatitis | | | | [address] [place] | [facility] | (Primary Dx); | | 02/28/ | | [place], [place] | [place] [address] | Calculus of | | 2018 | | [address] | [phone] | gallbladder with | | | | [phone] | | acute cholecystitis | | | | | Lainey Issa MD | without obstruction | | | | | [address] [place] | | | | | | [place] [address] | | | | | | [phone] | | | | | | | [...] + + documented as of this encounter Last Filed Vital Signs + + + + + | Vital Sign | Reading | Time Taken | Comments | + + + + + | Blood Pressure | 146/85 | 02/28/2018 5:00 PM | | | | | PDT | | + + + + + | Pulse | 67 | 02/28/2018 5:00 PM | | | | | PDT | | + + + + + | Temperature | 36 C (96.8 F) | 02/28/2018 3:34 PM | | | | | PDT | | + + + + + | Respiratory Rate | 16 | 02/28/2018 5:00 PM | | | | | PDT | | + + + + + | Oxygen Saturation | 95% | 02/28/2018 5:00 PM | | | | | PDT | | + + + + + | Inhaled Oxygen | - | - | | | Concentration | | | | + + + + + | Weight | 128.5 kg (283 lb 6.4 | 02/28/2018 5:00 AM | | | | oz) | PDT | | + + + + + | Height | 167.6 cm (5' 6") | 02/26/2018 11:35 PM | | | | | PDT | | + + + + + | Body Mass Index | 45.74 | 02/26/2018 11:35 PM | | | | | PDT | | + + + + + documented in this encounter Functional Status + + + + | Functional Status | Response | Date of Assessment | + + + + | Are you deaf or do you have serious | No | 02/28/2018 | | difficulty hearing? | | | + + + + | Are you blind or do you have serious | No | 02/28/2018 | | difficulty seeing, even when wearing | | | | glasses? | | | + + + + | Do you have serious difficulty walking or | No | 02/28/2018 | | climbing stairs? (5 years old or older) | | | + + + + | Do you have difficulty dressing or bathing? | No | 02/28/2018 | | (5 years old or older) | | | + + + + | Because of a physical, mental, or emotional | No | 02/28/2018 | | condition, do you have difficulty doing | | | | errands alone such as visiting a doctor's | | | | office or shopping? [15 years old or | | | | older)] | | | + + + + + + + + | Cognitive Status | Response | Date of Assessment | + + + + | Because of a physical, mental, or emotional | No | 02/28/2018 | | condition, do you have serious difficulty | | | | concentrating, remembering, or making | | | | decisions? (5 years old or older) | | | + + + + documented as of this encounter Discharge Summaries Charbel Cook MD - 02/28/2018 4:12 PM PDT MEDICAL HOSPITALIST DISCHARGE SUMMARY Pt. Name/Age/: Nancy Posey 32 y.o. 1985 Date of Admission: 02/26/2018 Date of Discharge: 02/28/2018 PCP: No Physician on file Admitting Diagnosis: Acute pancreatitis Discharge Diagnosis: Principal Problem: Acute pancreatitis Resolved Problems: * No resolved hospital problems. * Acute gallstone pancreatitis status post cholecystectomy Additional discharge history/co-morbidities: Active Ambulatory Problems Diagnosis Date Noted No Active Ambulatory Problems Resolved Ambulatory Problems Diagnosis Date Noted No Resolved Ambulatory Problems No Additional Past Medical History Medications Reconciled upon Discharge are: Discharge Medications New Medications Details oxyCODONE-acetaminophen 5-325 mg per tablet Take 1-2 tablets by mouth every 6 hours as needed for Pain. aka: PERCOCET Unchanged Medications Details HAIR SKIN AND NAILS FORMULA PO Take 1 tablet by mouth Daily. PROBIOTIC ACIDOPHILUS PO Take 1 capsule by mouth Daily. Clinical Resume: This is a healthy 32-year-old female who was admitted for acute onset abdominal pain. She was noted to have grossly elevated lipase on admission, >16,000. She was admitted for pancr eatitis and treated with IV pain medications, IV fluids and nothing by mouth. US of the RUQ demonstrated multiple gallstones in the gallbladder but no choledocholithiasis. Day followi ng her admission her lipase had normalized. General surgery saw the patient and deemed her a candidate for a lap zara. She had that procedure performed without complication on day o f discharge. Gen. surgery discharged her with all instructions and orders. Follow-up per g eneral surgery. Only new medication is Percocet 5/325 one to 2 tabs every 6 when necessary dispensed 20 Significant tests and procedures during admission: Ct Abdomen Pelvis W Contrast Result Date: 02/27/2018 EXAMINATION: CT ABDOMEN PELVIS W CONTRAST HISTORY: CHEST PAIN; She has documented cholelith iasis with a massively elevated lipase COMPARISON STUDY: February 26, 2017 TECHNIQUE: 1.25 mm a xial slices were acquired through the abdomen and pelvis with contrast. There was no post c ontrast reaction. DOSE REPORT: CTDIvol: 29.7 mGy. DLP: 1620 mGy-cm. Automated exposure cont rol was utilized. FINDINGS: The lung bases are clear. Heart size is normal. No pericardial o r pleural effusion. The liver mild diffuse decreased density of the liver. No focal liver l esion. Gallbladder shows no evidence of active inflammation. The known cholelithiasis is no t re-demonstrated. No biliary ductal dilatation. The pancreas is unremarkable. The spleen is unremarkable. Adrenal glands are normal in appearance. The right kidney is normal. The left kidney is normal. Bladder is decompressed. Intrauterine device is appropriately positioned. No free fluid or free air. Evaluation of the colon demonstrates no focal abnormality. Appen marah is normal. Small bowel gas pattern is normal. The stomach and distal esophagus are bryce l. Aorta is normal in course and caliber. No atherosclerosis. No abdominal wall hernia. Alaina luation of the mesentery and retroperitoneum demonstrates no pathologically enlarged adenopa thy. No acute bone process. IMPRESSION: 1. No acute intra-abdominal or pelvic process is identified. 2. Appropriate pos ition of intrauterine device. 3. Please see ultrasound report February 26, 2018 for discussion of cholelithiasis. Dictated by: Xavier Dykes Electronically Signed by: Xavier Dykes on 0 02/27/2018 9:01 AM Us Abdomen Limited Result Date: 02/27/2018 EXAMINATION: US ABDOMEN LIMITED HISTORY: CHEST PAIN COMPARISON STUDY: None FINDINGS: The li danae is increased in echogenicity with respect to the right kidney. Numerous echogenic stones are noted layering dependently within the gallbladder. No cholelithiasis. No pericholecysti c fluid. No biliary ductal dilatation. Common bile duct measures 4 mm Common hepatic duct me asures 3 mm IMPRESSION: Cholelithiasis. Hepatic steatosis. Dictated by: Xavier Dykes Electronically S igned by: Xavier Dykes on 02/27/2018 8:12 AM Recommended follow up labs/imaging/tests: Pending inpatient studies at time of discharge: Disposition: Home Follow-Up Plans: Physician No Per general surgery recommendations Time spent on D/C and coordination care: (less than 30 min OR greater than 30 min) 30 minutes I personally saw the patient today to arrange discharge. Charbel Cook, 02/28/2018 documented in this encounter Discharge Instructions AttachmentsThe following attachments cannot be sent through Care Everywhere.Cholecystectomy (Laparoscopic), Discharge Instructions (Indonesian)documented in this encounter Medications at Time of Discharge + + + +---------+ + + | Medication | Sig | Dispensed | Refills | Start | End Date | | | | | | Date | | + + + +---------+ + + | Lactobacillus | Take 1 capsule by | | 0 | | | | (PROBIOTIC | mouth Daily. | | | | | | ACIDOPHILUS PO) | | | | | | + + + +---------+ + + | Multiple | Take 1 tablet by | | 0 | | | | Vitamins-Minerals | mouth Daily. | | | | | | (HAIR SKIN AND NAILS | | | | | | | FORMULA PO) | | | | | | + + + +---------+ + + | | Take 1-2 tablets by | 30 | 0 | 03/30/20 | | | oxyCODONE-acetaminop | mouth every 6 hours | tablet | | 18 | | | hen (PERCOCET) 5-325 | as needed for Pain. | | | | | | mg per tablet | | | | | | + + + +---------+ + + documented as of this encounter Progress Notes Charbel Cook MD - 02/28/2018 9:51 AM PDT MEDICAL HOSPITALIST TEAM PROGRESS NOTE Name:Nancy Posey [facility] Day # 2 Reason for admission and continued stay: Nancy Posey is a 32 y.o. female hospitalize d for Acute pancreatitis Assessment and Plan: Active Hospital Problems Diagnosis Acute pancreatitis Resolved Hospital Problems Diagnosis No resolved problems to display. Pancreatitis: Resolved clinically Pt to go to OR this afternoon for lap zara - indication, gallstone pancreatitis Subjective/ROS: feels hung over this morning. Had a migraine last night and received narcs. Objective: Most recent vital signs: BP 132/82 | Pulse 67 | Temp 36.6 C (97.88 F) (Oral) | Resp 16 | Ht 1.676 m (5' 6") | Wt 128.5 kg (283 lb 6.4 oz) | LMP (LMP Unknown) | SpO2 100% | ? No | BM I 45.74 kg/m Vital sign ranges for last 24hrs: Input and output for last 24hrs: Temp: [36.6 C (97.88 F)-36.7 C (98.1 F)] 36.6 C (97.88 F) Pulse: [67-107] 67 Resp: [14-16] 16 BP: (130-147)/(81-86) 132/82 SpO2 Av % Min: 96 % Max: 100 % 02/26 1901 - 02/28 0700 In: 2502.2 [P.O.:290; I.V.:2192] Out: 800 [Urine:800] Physical Examination: General: nad Last 8 glucose values: Recent Labs Lab 02/26/18 1755 GLU 126* Labs/Studies: Recent Labs Lab 02/27/18 0525 02/26/18 1755 WBC 8.5 13.8* HGB 12.4 13.4 HCT 37.3* 40.1 PLT 304 322 Recent Labs Lab 02/27/18 0525 02/26/18 1755 NA -- 141 K -- 4.2 CL -- 105 CO2 -- 29 BUN -- 14 CREA -- 0.81 GLU -- 126* MG 2.2 -- CALCIUM -- 9.0 BILITOT -- 0.3 AST -- 30 ALT -- 40 ALKPHOS -- 95 ALBUMIN -- 3.6 Pertinent micro results: Ct Abdomen Pelvis W Contrast Result Date: 02/27/2018 EXAMINATION: CT ABDOMEN PELVIS W CONTRAST HISTORY: CHEST PAIN; She has documented cholelith iasis with a massively elevated lipase COMPARISON STUDY: February 26, 2017 TECHNIQUE: 1.25 mm a xial slices were acquired through the abdomen and pelvis with contrast. There was no post c ontrast reaction. DOSE REPORT: CTDIvol: 29.7 mGy. DLP: 1620 mGy-cm. Automated exposure cont rol was utilized. FINDINGS: The lung bases are clear. Heart size is normal. No pericardial o r pleural effusion. The liver mild diffuse decreased density of the liver. No focal liver l esion. Gallbladder shows no evidence of active inflammation. The known cholelithiasis is no t re-demonstrated. No biliary ductal dilatation. The pancreas is unremarkable. The spleen is unremarkable. Adrenal glands are normal in appearance. The right kidney is normal. The left kidney is normal. Bladder is decompressed. Intrauterine device is appropriately positioned. No free fluid or free air. Evaluation of the colon demonstrates no focal abnormality. Appen marah is normal. Small bowel gas pattern is normal. The stomach and distal esophagus are bryce l. Aorta is normal in course and caliber. No atherosclerosis. No abdominal wall hernia. Alaina luation of the mesentery and retroperitoneum demonstrates no pathologically enlarged adenopa thy. No acute bone process. IMPRESSION: 1. No acute intra-abdominal or pelvic process is identified. 2. Appropriate pos ition of intrauterine device. 3. Please see ultrasound report February 26, 2018 for discussion of cholelithiasis. Dictated by: Xavier Dykes Electronically Signed by: Xavier Dykes on 0 02/27/2018 9:01 AM Us Abdomen Limited Result Date: 02/27/2018 EXAMINATION: US ABDOMEN LIMITED HISTORY: CHEST PAIN COMPARISON STUDY: None FINDINGS: The li danae is increased in echogenicity with respect to the right kidney. Numerous echogenic stones are noted layering dependently within the gallbladder. No cholelithiasis. No pericholecysti c fluid. No biliary ductal dilatation. Common bile duct measures 4 mm Common hepatic duct me asures 3 mm IMPRESSION: Cholelithiasis. Hepatic steatosis. Dictated by: Xavier Dykes Electronically S igned by: Xavier Dykes on 02/27/2018 8:12 AM I have personally reviewed the above laboratory results and/or imaging. Medications reviewed: Charbel Cook MD, MD 02/28/2018 Total time spent today: > 15 minutes Greater than 50% of total time spent on counseling and coordination of care. Portions of this chart may have been created with voice recognition software. Occasional wo rd or "sound-alike" substitutions may have occurred due to the inherent limitation of voice recognition software. Read the chart carefully and recognize, using context, where these sub stitutions have occurred. Charbel Thompson MD - 02/27/2018 10:23 AM PDT MEDICAL HOSPITALIST TEAM PROGRESS NOTE Name:Nancyhuey Posey [facility] Day # 1 Reason for admission and continued stay: Nancy Posey is a 32 y.o. female hospitalize d for Acute pancreatitis Assessment and Plan: Active Hospital Problems Diagnosis Acute pancreatitis Resolved Hospital Problems Diagnosis No resolved problems to display. Pancreatitis: - most hardy etiology is a stone that fell through the CBD. No acute dilation or obstruct ion. - Gen surg saw pt and is electing to take her to the OR tomorrow for lap zara - manage sx's - IVF and NPO - d/c ceftriaxone, no evidence of infectious etiology, no necrotizing pancreatitis seen on CT. WBC elevation is most likely stress degranulation Dispo pending, most likely 1-2 days Subjective/ROS: No appetite, pain improved, no nausea, + flatus. Objective: Most recent vital signs: BP 143/62 | Pulse 93 | Temp 36.6 C (97.88 F) | Resp 16 | Ht 1.676 m (5' 6") | Wt 1 27.4 kg (280 lb 13.9 oz) | LMP (LMP Unknown) | SpO2 98% | ? No | BMI 45.33 kg/m Vital sign ranges for last 24hrs: Input and output for last 24hrs: Temp: [36.6 C (97.88 F)-36.7 C (98.1 F)] 36.6 C (97.88 F) Pulse: [78-103] 93 Resp: [10-30] 16 BP: (123-157)/(42-133) 143/62 SpO2 Av.4 % Min: 97 % Max: 100 % 02/25 1901 - 02/27 0700 In: 786.2 [I.V.:766] Out: 100 [Urine:100] Physical Examination: General: nad, a&ox3 Cardiovascular: rrr Respiratory: ctab Abdomen: s/nt/nd, no pain to deep palpation over epigastrum, hypoactive bs Last 8 glucose values: Recent Labs Lab 02/26/18 1755 GLU 126* Labs/Studies: Recent Labs Lab 02/27/18 0525 02/26/18 1755 WBC 8.5 13.8* HGB 12.4 13.4 HCT 37.3* 40.1 PLT 304 322 Recent Labs Lab 02/27/18 0525 02/26/18 1755 NA -- 141 K -- 4.2 CL -- 105 CO2 -- 29 BUN -- 14 CREA -- 0.81 GLU -- 126* MG 2.2 -- CALCIUM -- 9.0 BILITOT -- 0.3 AST -- 30 ALT -- 40 ALKPHOS -- 95 ALBUMIN -- 3.6 Pertinent micro results: Ct Abdomen Pelvis W Contrast Result Date: 02/27/2018 EXAMINATION: CT ABDOMEN PELVIS W CONTRAST HISTORY: CHEST PAIN; She has documented cholelith iasis with a massively elevated lipase COMPARISON STUDY: February 26, 2017 TECHNIQUE: 1.25 mm a xial slices were acquired through the abdomen and pelvis with contrast. There was no post c ontrast reaction. DOSE REPORT: CTDIvol: 29.7 mGy. DLP: 1620 mGy-cm. Automated exposure cont rol was utilized. FINDINGS: The lung bases are clear. Heart size is normal. No pericardial o r pleural effusion. The liver mild diffuse decreased density of the liver. No focal liver l esion. Gallbladder shows no evidence of active inflammation. The known cholelithiasis is no t re-demonstrated. No biliary ductal dilatation. The pancreas is unremarkable. The spleen is unremarkable. Adrenal glands are normal in appearance. The right kidney is normal. The left kidney is normal. Bladder is decompressed. Intrauterine device is appropriately positioned. No free fluid or free air. Evaluation of the colon demonstrates no focal abnormality. Appen marah is normal. Small bowel gas pattern is normal. The stomach and distal esophagus are bryce l. Aorta is normal in course and caliber. No atherosclerosis. No abdominal wall hernia. Alaina luation of the mesentery and retroperitoneum demonstrates no pathologically enlarged adenopa thy. No acute bone process. IMPRESSION: 1. No acute intra-abdominal or pelvic process is identified. 2. Appropriate pos ition of intrauterine device. 3. Please see ultrasound report February 26, 2018 for discussion of cholelithiasis. Dictated by: Xavier Dykes Electronically Signed by: Xavier Dykes on 0 02/27/2018 9:01 AM Us Abdomen Limited Result Date: 02/27/2018 EXAMINATION: US ABDOMEN LIMITED HISTORY: CHEST PAIN COMPARISON STUDY: None FINDINGS: The li danae is increased in echogenicity with respect to the right kidney. Numerous echogenic stones are noted layering dependently within the gallbladder. No cholelithiasis. No pericholecysti c fluid. No biliary ductal dilatation. Common bile duct measures 4 mm Common hepatic duct me asures 3 mm IMPRESSION: Cholelithiasis. Hepatic steatosis. Dictated by: Xavier Dykes Electronically S igned by: Xavier Dykes on 02/27/2018 8:12 AM I have personally reviewed the above laboratory results and/or imaging. Medications reviewed: Charbel Cook MD, MD 02/27/2018 Total time spent today: > 25 minutes Greater than 50% of total time spent on counseling and coordination of care. Portions of this chart may have been created with voice recognition software. Occasional wo rd or "sound-alike" substitutions may have occurred due to the inherent limitation of voice recognition software. Read the chart carefully and recognize, using context, where these sub stitutions have occurred. Yumiko Howard PharmD - 02/27/2018 8:48 AM PDTMedication History Completed Medication history was completed using: -interview with Patient Major discrepancies noted: Patient stated she takes a probiotic and a hair, skin and nail. Please see [facility] med list for updated medication list. Electronically Signed by: Yumiko Roach PharmD 02/27/2018 8:48 documented in th is encounter Plan of Treatment Not on filedocumented as of this encounter Procedures + +--------+ + + + | Procedure Name | Priori | Date/Time | Associated Diagnosis | Comments | | | ty | | | | + +--------+ + + + | LAPAROSCOPIC | | 02/28/2018 | Unknown | | | CHOLECYSTECTOMY | | 2:27 PM | | | | | | PDT | | | + +--------+ + + + | POC GLUCOSE | Routin | 02/28/2018 | | Results for this | | | e | 11:33 AM | | procedure are in the | | | | PDT | | results section. | + +--------+ + + + | , SERUM, | Routin | 02/28/2018 | | Results for this | | QUAL | e | 10:40 AM | | procedure are in the | | | | PDT | | results section. | + +--------+ + + + | SURGICAL PATHOLOGY | Routin | 02/28/2018 | | Results for this | | EXAM | e | 12:00 AM | | procedure are in the | | | | PDT | | results section. | + +--------+ + + + | LIPASE | STAT | 02/27/2018 | | Results for this | | | | 9:45 AM | | procedure are in the | | | | PDT | | results section. | + +--------+ + + + | LIPID PANEL | Routin | 02/27/2018 | | Results for this | | | e | 5:25 AM | | procedure are in the | | | | PDT | | results section. | + +--------+ + + + | PROTIME INR | Routin | 02/27/2018 | | Results for this | | | e | 5:25 AM | | procedure are in the | | | | PDT | | results section. | + +--------+ + + + | CBC WITH | Routin | 02/27/2018 | | Results for this | | DIFFERENTIAL | e | 5:25 AM | | procedure are in the | | | | PDT | | results section. | + +--------+ + + + | MAGNESIUM | Routin | 02/27/2018 | | Results for this | | | e | 5:25 AM | | procedure are in the | | | | PDT | | results section. | + +--------+ + + + | ECG - EXTERNAL SCAN | | 02/27/2018 | | Results for this | | | | 12:00 AM | | procedure are in the | | | | PDT | | results section. | + +--------+ + + + | CT ABDOMEN PELVIS W | STAT | 02/26/2018 | | Results for this | | CONTRAST | | 8:30 PM | | procedure are in the | | | | PDT | | results section. | + +--------+ + + + | URINALYSIS WITH | STAT | 02/26/2018 | | Results for this | | MICROSCOPIC WITH | | 6:49 PM | | procedure are in the | | CULTURE IF INDICATED | | PDT | | results section. | + +--------+ + + + | US ABDOMEN LIMITED | STAT | 02/26/2018 | | Results for this | | | | 6:28 PM | | procedure are in the | | | | PDT | | results section. | + +--------+ + + + | TSH, REFLEX FREE T4 | Routin | 02/26/2018 | | Results for this | | | e | 5:55 PM | | procedure are in the | | | | PDT | | results section. | + +--------+ + + + | TROPONIN I | STAT | 02/26/2018 | | Results for this | | | | 5:55 PM | | procedure are in the | | | | PDT | | results section. | + +--------+ + + + | CBC WITH | STAT | 02/26/2018 | | Results for this | | DIFFERENTIAL | | 5:55 PM | | procedure are in the | | | | PDT | | results section. | + +--------+ + + + | , SERUM, | STAT | 02/26/2018 | | Results for this | | QUAL | | 5:55 PM | | procedure are in the | | | | PDT | | results section. | + +--------+ + + + | LIPASE | STAT | 02/26/2018 | | Results for this | | | | 5:55 PM | | procedure are in the | | | | PDT | | results section. | + +--------+ + + + | COMPREHENSIVE | STAT | 02/26/2018 | | Results for this | | METABOLIC PANEL | | 5:55 PM | | procedure are in the | | | | PDT | | results section. | + +--------+ + + + | ECG 12 LEAD | STAT | 02/26/2018 | | Results for this | | | | 5:16 PM | | procedure are in the | | | | PDT | | results section. | + +--------+ + + + documented in this encounter Results POC Glucose (02/28/2018 11:33 AM PDT) + +-------+ + + + | Component | Value | Ref Range | Performed | Pathologist | | | | | At | Signature | + +-------+ + + + | Glucose, | 94 | 70 - 110 mg/dL | [facility] | | | POC | | | [facility] | | | | | | [facility] | | + +-------+ + + + + + | Specimen | + + | Blood | + + + + + + + | Performing | Address | City/State/Zipcode | Phone Number | | Organization | | | | + + + + + | [facility] | [address] | [place] | [phone] | | [facility] | | [address] | | + + + + + , Serum, Qual (02/28/2018 10:40 AM PDT) + + + + + + | Component | Value | Ref Range | Performed | Pathologist | | | | | At | Signature | + + + + + + | hCG Screen, | Negative | Negative | [facility] | | | Serum | | | [facility] | | | | | | [facility] | | + + + + + + + + | Specimen | + + | Blood | + + + + + + + | Performing | Address | City/State/Zipcode | Phone Number | | Organization | | | | + + + + + | [facility] | [address] | [place] | [phone] | | [facility] | | [address] | | + + + + + Surgical Pathology Exam (02/28/2018 12:00 AM PDT) + + | Specimen | + + | | + + + + + | Narrative | Performed At | + + + | SPECIMEN(S): A GALLBLADDER SPECIMEN SOURCE: A. GALLBLADDER | [facility] | | CLINICAL HISTORY: Laparoscopic cholecystectomy. FINAL PATHOLOGIC | [facility] | | DIAGNOSIS: Gallbladder, cholecystectomy: - Mild chronic | | | cholecystitis. - Cholelithiasis. JDS:[facility]:C2NR MICROSCOPIC | | | EXAMINATION: Histologic sections of all submitted blocks are examined | | | by light microscopy. These findings, together with the gross | | | examination, support the pathologic diagnosis. GROSS DESCRIPTION: | | | Received in a formalin-filled container labeled "Nancy Posey, | | | gallbladder with contents" is a 6 x 3.6 x 0.4 cm olive-green, | | | pear-shaped gallbladder. There is a metal clip securing the cystic | | | duct margin. The serosa is smooth, glistening and without | | | perforations. The mucosa is velvety and has scattered bradley stones over | | | its surface. The stones measure up to 0.4 cm in greatest dimension. No | | | nodules or masses are grossly appreciated. Pipe Layer sections | | | are submitted in one cassette (A1). [facility] PERFORMING | | | LABORATORY: The technical component was performed by [employer] | | | [facility], [address], [place] | | | [place] [address] (Optometrist President/Practice Owner: Joe Fall MD; CLIA# | | | [id number]). Professional interpretation was performed by [employer] | | | [facility], [address] [facility], [facility] [place], [place] | | | [place] [address] (Optometrist President/Practice Owner: Joe Fall MD; CLIA# | | | [id number]). Diagnostician: Joe Fall MD Pathologist | | | Electronically Signed 03/04/2018 | | + + + + +---------+ + + | Performing | Address | City/State/Zipcode | Phone Number | | Organization | | | | + +---------+ + + | [facility] | | | | | [facility] | | | | + +---------+ + + Lipase (02/27/2018 9:45 AM PDT) + +---------+ + + + | Component | Value | Ref Range | Performed | Pathologist | | | | | At | Signature | + +---------+ + + + | Lipase | 482 (H) | 73 - 393 U/L | [facility] | | | | [facility] | [facility] | | | | | | [facility] | | + +---------+ + + + + + | Specimen | + + | Blood | + + + + + + + | Performing | Address | City/State/Zipcode | Phone Number | | Organization | | | | + + + + + | [facility] | [address] | [place] | [phone] | | [facility] | | [address] | | + + + + + Lipid Panel (02/27/2018 5:25 AM PDT) + + + + + + | Component | Value | Ref Range | Performed | Pathologist | | | | | At | Signature | + + + + + + | Triglycerid | 45 | 30-<200 mg/dL | [facility] | | | es | | | [facility] | | | | | [facility] | | | | | | [facility]ATORY | | + + + + + + | Cholesterol | 152 | 0 - 200 mg/dL | [facility] | | | | | | [facility] | | | | | [facility] | | | | | | [facility] | | + + + + + + | HDL | 54 | >=40 mg/dL | [facility] | | | | | | [facility] | | | | | [facility] | | | | | | [facility] | | + + + + + + | Chol/HDL | 2.8 | | [facility] | | | Ratio | | | [facility] | | | | | | [facility] | | | | | | [facility] | | + + + + + + | LDL, | 89Comment: LDL reference | <=150 mg/dL | [facility] | | | Calculated | range: < 100 | | [facility] | | | | mg/dL [id number] - | | [facility]OSPITAL | | | | 129 mg/dL Near | | LABORATORY | | | | [id number] - 159 mg/dL | | | | | | [id number] - 189 | | | | | | mg/dL High | | | | | | > 190 mg/dL Very | | | | | | High | | | | + + + + + + | Fasting? | Yes | | [facility] | | | | | | [facility] | | | | [facility] | | | | | | [facility] | | + + + + + + + + | Specimen | + + | Blood | + + + + + | Narrative | Performed At | + + + | Fasting 12hrs | [facility] | | | [facility] | | | [facility] | + + + + + + + + | Performing | Address | City/State/Zipcode | Phone Number | | Organization | | | | + + + + + | [facility] | [address] | [place], [place] | [phone] | | [facility] | | [address] | | + + + + + Protime INR (02/27/2018 5:25 AM PDT) + +-------+ + + + | Component | Value | Ref Range | Performed | Pathologist | | | | | At | Signature | + +-------+ + + + | Prothrombin | 13.7 | 12.3 - 14.1 | [facility] | | | Time | | seconds | [facility] | | | | | [facility] | | | | | | [facility] | | + +-------+ + + + | INR | 1.04 | 0.00 - 1.30 | [facility] | | | | | | [facility] | | [facility] | [facility] | | | | | | [facility] | | + +-------+ + + + + + | Specimen | + + | Blood | + + + + + | Narrative | Performed At | + + + | INR Therapeutic Range: INR: 2.0-3.0 CONVENTIONAL ANTICOAGULATION | [facility] | | INR: 2.5-3.5 INTENSIVE ANTICOAGULATION | HOSPITAL | | | LABORATORY | + + + + + + + + | Performing | Address | City/State/Zipcode | Phone Number | | Organization | | | | + + + + + | [facility] | [address] | [place] | [phone] | | [facility] | | [address] | | + + + + + Magnesium (02/27/2018 5:25 AM PDT) + +-------+ + + + | Component | Value | Ref Range | Performed | Pathologist | | | | | At | Signature | + +-------+ + + + | Magnesium | 2.2 | 1.8 - 2.4 mg/dL | [facility] | | | | | | [facility] | [facility] | | | | | | [facility] | | + +-------+ + + + + + | Specimen | + + | Blood | + + + + + + + | Performing | Address | City/State/Zipcode | Phone Number | | Organization | | | | + + + + + | [facility] | [address] | [place] | [phone] | | [facility] | | [address] | | + + + + + CBC with Differential (02/27/2018 5:25 AM PDT) + + + + + + | Component | Value | Ref Range | Performed | Pathologist | | | | | At | Signature | + + + + + + | WBC | 8.5 | 4.3 - 10.4 K/uL | [facility] | | | | | | [facility] | [facility] | | | | | | [facility] | | + + + + + + | RBC | 4.37 | 4.12 - 5.30 | [facility] | | | | | M/uL | [facility] | | | | | [facility] | | | | | | [facility] | | + + + + + + | Hemoglobin | 12.4 | 12.4 - 15.7 | [facility] | | | | | g/dL | [facility] | | | | | | [facility] | | | | | | [facility] | | + + + + + + | Hct | 37.3 (L) | 37.7 - 47.0 % | [facility] | | | | | | [facility] | [facility] | [facility] | | | | | | [facility] | | + + + + + + | MCV | 85.4 | 82.0 - 97.0 fL | [facility] | | | | | | [facility] | | | | | [facility] | | | | | | [facility] | | + + + + + + | MCH | 28.4 | 27.1 - 32.3 pg | [facility] | | | | | | [facility] | | | | | [facility] | | | | | | [facility] | | + + + + + + | MCHC | 33.2 | 32.0 - 36.9 | [facility] | | | | | g/dL | [facility] | | | | | [facility] | | | | | | [facility] | | + + + + + + | RDW-CV | 12.2 | 0.0 - 17.0 % | [facility] | | | | | | [facility] | | | | | [facility] | | | | | | [facility] | | + + + + + + | Platelet | 304 | 150 - 450 K/uL | [facility] | | | Count | | | [facility] | | | | | | [facility] | | | | | | [facility] | | + + + + + + | MPV | 9.6 | 9.4 - 12.3 fL | [facility] | | | | | | [facility] | | | | | [facility] | | | | | | [facility] | | + + + + + + | % | 68.0 | 42.0 - 76.0 % | [facility] | | | Neutrophils | | | [facility] | | | | | [facility] | | | | | | [facility] | | + + + + + + | % | 24.6 | 20.0 - 40.0 % | [facility] | | | Lymphocytes | | | [facility] | | | | | [facility] | | | | | | [facility] | | + + + + + + | % Monocytes | 5.7 | 0.0 - 12.0 % | [facility] | | | | | | [facility] | | | | [facility] | | | | | | [facility] | | + + + + + + | % | 0.7 | 0.0 - 7.0 % | [facility] | | | Eosinophils | | | [facility] | | | | | | [facility] | | | | | | [facility] | | + + + + + + | % Basophils | 0.5 | 0.0 - 2.0 % | [facility] | | | | | | [facility] | | | | | [facility] | | | | | | [facility] | | + + + + + + | % Immature | 0.5 | 0.0 - 0.5 % | [facility] | | | Granulocyte | | | [facility] | | | s | | | [facility]OSPITAL | | | | | | LABORATORY | | + + + + + + | Absolute | 5.77 | 2.50 - 8.50 | [facility] | | | Neutrophils | | K/uL | [facility] | | | | | [facility] | | | | | | [facility] | | + + + + + + | Absolute | 2.09 | 1.00 - 3.80 | [facility] | | | Lymphocytes | | K/uL | [facility] | | | | | [facility] | | | | | | [facility] | | + + + + + + | Absolute | 0.48 | 0.00 - 1.60 | [facility] | | | Monocytes | | K/uL | [facility] | | | | | [facility] | | | | | | [facility] | | + + + + + + | Absolute | 0.06 | 0.00 - 0.70 | [facility] | | | Eosinophils | | K/uL | [facility] | [facility] | | | [facility] | | | | | | [facility] | | + + + + + + | Absolute | 0.04 | 0.00 - 0.20 | [facility] | | | Basophils | | K/uL | [facility] | | | | | | [facility] | | | | | | [facility] | | + + + + + + | Absolute | 0.04 | 0.00 - 0.15 | [facility] | | | Immature | | K/UL | [facility] | | | Granulocyte | | | HOSPITAL | | | s | | | LABORATORY | | + + + + + + | % nRBC | 0 | 0 - 0 per 100 | [facility] | | | | | WBC's | [facility] | | | | | | [facility] | | | | | | [facility]ATORY | | + + + + + + | Absolute | 0.00 | 0.00 - 0.01 | [facility] | | | nRBC | | K/UL | [facility] | | | | | | [facility] | | | | | | [facility] | | + + + + + + + + | Specimen | + + | Blood | + + + + + + + | Performing | Address | City/State/Zipcode | Phone Number | | Organization | | | | + + + + + | [facility] | [address] | [place] | [phone] | | [facility] | | [address] | | + + + + + ECG - EXTERNAL SCAN (02/27/2018 12:00 AM PDT) + + + | Narrative | Performed At | + + + | Ordered by an | | | unspecified provider. | | + + + CT Abdomen Pelvis w Contrast (02/26/2018 8:30 PM PDT) + + | Specimen | + + | | + + + + + | Impressions | Performed At | + + + | IMPRESSION: 1. No acute intra-abdominal or pelvic process is | [facility] | | identified. 2. Appropriate position of intrauterine device. 3. | | | Please see ultrasound report February 26, 2018 for discussion of | | | cholelithiasis. Dictated by: Xavier Dykes Electronically | | | Signed by: Xavier Dykes on 02/27/2018 9:01 AM | | + + + + + + | Narrative | Performed At | + + + | EXAMINATION: CT ABDOMEN PELVIS W CONTRAST HISTORY: CHEST PAIN; | [facility] | | She has documented cholelithiasis with a massively elevated lipase | | | COMPARISON STUDY: February 26, 2017 TECHNIQUE: 1.25 mm axial | | | slices were acquired through the abdomen and pelvis with contrast. | | | There was no post contrast reaction. DOSE REPORT: CTDIvol: 29.7 | | | mGy. DLP: 1620 mGy-cm. Automated exposure control was utilized. | | | FINDINGS: The lung bases are clear. Heart size is normal. No | | | pericardial or pleural effusion. The liver mild diffuse decreased | | | density of the liver. No focal liver lesion. Gallbladder shows no | | | evidence of active inflammation. The known cholelithiasis is not | | | re-demonstrated. No biliary ductal dilatation. The pancreas is | | | unremarkable. The spleen is unremarkable. Adrenal glands are | | | normal in appearance. The right kidney is normal. The left kidney is | | | normal. Bladder is decompressed. Intrauterine device is | | | appropriately positioned. No free fluid or free air. Evaluation | | | of the colon demonstrates no focal abnormality. Appendix is normal. | | | Small bowel gas pattern is normal. The stomach and distal esophagus | | | are normal. Aorta is normal in course and caliber. No | | | atherosclerosis. No abdominal wall hernia. Evaluation of the | | | mesentery and retroperitoneum demonstrates no pathologically enlarged | | | adenopathy. No acute bone process. | | + + + + + | Procedure Note | + + | Shan, Rad Results In - 02/27/2018 9:05 AM PDT EXAMINATION:CT ABDOMEN PELVIS W | | CONTRASTHISTORY:CHEST PAIN; She has documented cholelithiasis with a massively elevated | | lipaseCOMPARISON STUDY:February 26, 2017TECHNIQUE:1.25 mm axial slices were acquired | | through the abdomen and pelvis with contrast. There was no post contrast reaction.DOSE | | REPORT:CTDIvol: 29.7 mGy. DLP: 1620 mGy-cm. Automated exposure control was | | utilized.FINDINGS:The lung bases are clear.Heart size is normal.No pericardial or | | pleural effusion.The liver mild diffuse decreased density of the liver. No focal liver | | lesion.Gallbladder shows no evidence of active inflammation. The known cholelithiasis | | is not re-demonstrated.No biliary ductal dilatation.The pancreas is unremarkable.The | | spleen is unremarkable.Adrenal glands are normal in appearance.The right kidney is | | normal.The left kidney is normal.Bladder is decompressed.Intrauterine device is | | appropriately positioned.No free fluid or free air.Evaluation of the colon demonstrates | | no focal abnormality.Appendix is normal.Small bowel gas pattern is normal.The stomach | | and distal esophagus are normal.Aorta is normal in course and caliber. No | | atherosclerosis.No abdominal wall hernia.Evaluation of the mesentery and retroperitoneum | | demonstrates no pathologically enlarged adenopathy.No acute bone process.IMPRESSION: | | IMPRESSION:1. No acute intra-abdominal or pelvic process is identified.2. Appropriate | | position of intrauterine device.3. Please see ultrasound report February 26, 2018 for | | discussion of cholelithiasis.Dictated by: Xavier Mitchellectronically Signed by: Xavier | | Donis on 02/27/2018 9:01 AM | |The liver mild diffuse decreased density of the liver. No focal liver lesion. | |Gallbladder shows no evidence of active inflammation. The known cholelithiasis is not re-d emonstrated. | |No biliary ductal dilatation. | |The pancreas is unremarkable. | |The spleen is unremarkable. | | | |Adrenal glands are normal in appearance. | |The right kidney is normal. | |The left kidney is normal. | |Bladder is decompressed. | |Intrauterine device is appropriately positioned. | | | |No free fluid or free air. | |Evaluation of the colon demonstrates no focal abnormality. | |Appendix is normal. | |Small bowel gas pattern is normal. | |The stomach and distal esophagus are normal. | | | |Aorta is normal in course and caliber. No atherosclerosis. | |No abdominal wall hernia. | |Evaluation of the mesentery and retroperitoneum demonstrates no pathologically enlarged robert nopathy. | | | |No acute bone process. | | | |IMPRESSION: | |IMPRESSION: | |1. No acute intra-abdominal or pelvic process is identified. | |2. Appropriate position of intrauterine device. | |3. Please see ultrasound report February 26, 2018 for discussion of cholelithiasis. | | | |Dictated by: Xavier Dykes | | | | | + + + +---------+ + + | Performing | Address | City/State/Zipcode | Phone Number | | Organization | | | | + +---------+ + + | [facility] | | | | + +---------+ + + Urinalysis with Microscopic with Culture if Indicated (02/26/2018 6:49 PM PDT) + + + + + + | Component | Value | Ref Range | Performed | Pathologist | | | | | At | Signature | + + + + + + | Color, | Yellow | Pale Yellow, | [facility] | | | Urine | | Yellow | [facility] | | | | | | [facility] | | | | | | [facility] | | + + + + + + | Clarity | Clear | Clear | [facility] | | | | | | [facility] | | | | | | [facility] | | | | | | [facility] | | + + + + + + | pH, Urine | 8.0 (H) | 5.0 - 7.0 | [facility] | | | | | | [facility] | | | | | | [facility] | | | | | | [facility] | | + + + + + + | Specific | 1.010 | 1.003 - 1.030 | [facility] | | | [place], | | | [facility] | | | Urine | | | [facility]OSP[facility] | | | | | | LAB[facility]ATORY | | + + + + + + | Protein, | Negative | Negative | [facility] | | | Urine | | | [facility] | | | | | | [facility] | | | | | | [facility] | | + + + + + + | Blood, | Negative | Negative | [facility] | | | Urine | | | [facility] | | | | | | [facility] | | | | | | [facility] | | + + + + + + | Glucose, | Normal | Normal | [facility] | | | Urine | | | [facility] | | | | | | [facility] | | | | | | [facility] | | + + + + + + | Ketones, | Negative | Negative | [facility] | | | Urine | | | [facility] | | | | | | [facility] | | | | | | [facility] | | + + + + + + | Bilirubin, | Negative | Negative | [facility] | | | Urine | | | [facility] | | | | | | [facility] | | | | | | [facility] | | + + + + + + | Nitrite, | Negative | Negative | [facility] | | | Urine | | | [facility] | | | | | | [facility] | | | | | | [facility]ORY | | + + + + + + | Leukocyte | Negative | Negative | [facility] | | | Esterase, | | | [facility] | | | Urine | | | HOSPITAL | | | | | | LAB[facility]ATORY | | + + + + + + | Urobilinoge | Normal | 0-1.0 mg/dL | [facility] | | | n, Urine | | | [facility] | | | | | | [facility] | | | | | | [facility] | | + + + + + + | White Blood | 0-2 | <=5 /HPF | [facility] | | | Cells, | | | [facility] | | | Urine | | | HOSPITAL | | | | | | LAB[facility]ATORY | | + + + + + + | Red Blood | 0-2 | <=5 /HPF | [facility] | | | Cells, | | | [facility] | | | Urine | | | [facility]OSPITAL | | | | | | LAB[facility]ATORY | | + + + + + + | Squamous | Moderate (A) | None Seen /LPF | [facility] | | | Epithelial | | | [facility] | | | Cells, | | | [facility]OSPITAL | | | Urine | | | LABORATORY | | + + + + + + | Bacteria, | Few (A) | None Seen /HPF | [facility] | | | Urine | | | [facility] | | | | | | [facility] | | | | | | [facility]ORY | | + + + + + + | Urine | Urine Culture Not | | [facility] | | | Comment | Indicated | | [facility] | | | | | | [facility] | | | | | | [facility] | | + + + + + + + + | Specimen | + + | Urine - Urine | | specimen obtained by | | clean catch | | procedure (specimen) | + + + + + + + | Performing | Address | City/State/Zipcode | Phone Number | | Organization | | | | + + + + + | [facility] | [address] | [place] | [phone] | | [facility] | | [address] | | + + + + + US Abdomen Limited (02/26/2018 6:28 PM PDT) + + | Specimen | + + | | + + + + + | Impressions | Performed At | + + + | IMPRESSION: Cholelithiasis. Hepatic steatosis. Dictated by: | [facility] | | Xavier Dykes Electronically Signed by: Xavier Dykes on | | | 02/27/2018 8:12 AM | | + + + + + + | Narrative | Performed At | + + + | EXAMINATION: US ABDOMEN LIMITED HISTORY: CHEST PAIN | [facility] | | COMPARISON STUDY: None FINDINGS: The liver is increased in | | | echogenicity with respect to the right kidney. Numerous echogenic | | | stones are noted layering dependently within the gallbladder. No | | | cholelithiasis. No pericholecystic fluid. No biliary ductal | | | dilatation. Common bile duct measures 4 mm Common hepatic duct | | | measures 3 mm | | + + + + + | Procedure Note | + + | Chadd Torrez Results In - 02/27/2018 8:15 AM PDT EXAMINATION: | | US ABDOMEN LIMITED | | | | HISTORY: | | CHEST PAIN | | | | COMPARISON STUDY: | | None | | | | FINDINGS: | | The liver is increased in echogenicity with respect to the right kidney. | | Numerous echogenic stones are noted layering dependently within the gallbladder. | | No cholelithiasis. | | No pericholecystic fluid. | | No biliary ductal dilatation. | | Common bile duct measures 4 mm | | Common hepatic duct measures 3 mm | | | | IMPRESSION: | | IMPRESSION: | | Cholelithiasis. | | Hepatic steatosis. | | | | Dictated by: Xavier Dykes | | | | | + + + +---------+ + + | Performing | Address | City/State/Zipcode | Phone Number | | Organization | | | | + +---------+ + + | [facility] | | | | + +---------+ + + TSH, Reflex Free T4 (02/26/2018 5:55 PM PDT) + +-------+ + + + | Component | Value | Ref Range | Performed | Pathologist | | | | | At | Signature | + +-------+ + + + | TSH | 1.79 | 0.36 - 3.74 | [facility] | | | | | uIU/mL | [facility] | | | | | [facility] | | | | | | [facility]ORY | | + +-------+ + + + + + | Specimen | + + | Blood | + + + + + + + | Performing | Address | City/State/Zipcode | Phone Number | | Organization | | | | + + + + + | [facility] | [address] | [place] | [phone] | | [facility] | | [address] | | + + + + + , Serum, Qual (02/26/2018 5:55 PM PDT) + + + + + + | Component | Value | Ref Range | Performed | Pathologist | | | | | At | Signature | + + + + + + | hCG Screen, | Negative | Negative | [facility] | | | Serum | | | [facility] | | | | | | [facility] | | | | | | [facility] | | + + + + + + + + | Specimen | + + | Blood | + + + + + + + | Performing | Address | City/State/Zipcode | Phone Number | | Organization | | | | + + + + + | [facility] | [address] | [place] | [phone] | | [facility] | | [address] | | + + + + + Troponin I (02/26/2018 5:55 PM PDT) + +-------+ + + + | Component | Value | Ref Range | Performed | Pathologist | | | | | At | Signature | + +-------+ + + + | Troponin I | <0.02 | 0.02 - 0.10 | [facility] | | | | | ng/mL ng/mL | [facility] | | | | | | [facility] | | | | | | [facility] | | + +-------+ + + + + + | Specimen | + + | Blood | + + + + + | Narrative | Performed At | + + + | In patients with acute coronary syndromes such as unstable angina or | [facility] | | non-Q wave myocardial infarction, cardiac troponin I levels provide | [facility] | | useful prognostic information and aid in early detection of such | [facility] | | patients with an increased risk of . The Risk Stratification | | | cutpoint for the Troponin I method is 0.1 ng/mL. The diagnostic | | | cutoff point for the diagnosis of NM is 0.8 ng/mL for the Troponin I | | | method. | | + + + + + + + + | Performing | Address | City/State/Zipcode | Phone Number | | Organization | | | | + + + + + | [facility] | [address] | [place] | [phone] | | [facility] | | [address] | | + + + + + Lipase (02/26/2018 5:55 PM PDT) + + + + + + | Component | Value | Ref Range | Performed | Pathologist | | | | | At | Signature | + + + + + + | Lipase | 16,727 (H) | 73 - 393 U/L | [facility] | | | | | | [facility] | | [facility] | [facility] | | | | | | [facility] | | + + + + + + + + | Specimen | + + | Blood | + + + + + | Narrative | Performed At | + + + | Diluted to obtain result | [facility] | | | [facility] | | | [facility] | + + + + + + + + | Performing | Address | City/State/Zipcode | Phone Number | | Organization | | | | + + + + + | [facility] | [address] | [place] | [phone] | | [facility] | | [address] | | + + + + + Comprehensive Metabolic Panel (02/26/2018 5:55 PM PDT) + + + + + + | Component | Value | Ref Range | Performed | Pathologist | | | | | At | Signature | + + + + + + | Na | 141 | 132 - 143 | [facility] | | | | | mmol/L | [facility] | | | | | | [facility] | | | | | | [facility] | | + + + + + + | K | 4.2 | 3.3 - 4.9 | [facility] | | | | | mmol/L | [facility] | | | | | | [facility] | | | | | | [facility] | | + + + + + + | Cl | 105 | 95 - 108 mmol/L | [facility] | | | | | | [facility] | | | | | [facility] | | | | | | [facility] | | + + + + + + | CO2 | 29 | 23 - 34 mmol/L | [facility] | | | | | | [facility] | | | | [facility] | | | | | | [facility] | | + + + + + + | Anion Gap | 7 | 7 - 16 mmol/L | [facility] | | | | | | [facility] | [facility] | [facility] | | | | | | [facility] | | + + + + + + | Glucose | 126 (H) | 70 - 110 mg/dL | [facility] | | | | | | [facility] | | | | [facility] | | | | | | [facility] | | + + + + + + | BUN | 14 | 5 - 26 mg/dL | [facility] | | | | | | [facility] | | | | | [facility] | | | | | | [facility] | | + + + + + + | Creatinine | 0.81 | 0.60 - 1.30 | [facility] | | | | | mg/dL | [facility] | [facility] | | | [facility] | | | | | | [facility] | | + + + + + + | eGFR if not | >60Comment: GLOMERULAR | >=60 | [facility] | | | | FILTRATION | mL/min/1.73m2 | [facility] | | | [facility] | RATE,ESTIMATED | | [facility] | | | | mL/min/1.87q6Juom than | | LAB[facility]ATORY | | | | 60 Chronic kidney | | | | | | disease,if found over a | | | | | | 3-month period.Less than | | | | | | 15 Kidney failureFor | | | | | | | | | | | | Americans,multiply the | | | | | | calculated GFR by 1.21. | | | | | | | | | | + + + + + + | Calcium | 9.0 | 8.3 - 10.0 | [facility] | | | | | mg/dL | [facility] | [facility] | [facility] | | | | | | [facility] | | + + + + + + | Albumin | 3.6 | 3.0 - 4.5 g/dL | [facility] | | | | | | [facility] | | | | | | [facility] | | | | | | [facility] | | + + + + + + | Bilirubin | 0.3 | 0.0 - 1.2 mg/dL | [facility] | | | Total | | | [facility] | | | | | | [facility] | | | | | | [facility] | | + + + + + + | Total | 7.3 | 6.6 - 8.5 g/dL | [facility] | | | Protein | | | [facility] | | | | | | [facility] | | | | | | [facility] | | + + + + + + | AST | 30 | 0 - 38 U/L | [facility] | | | | | | [facility] | | | | [facility] | | | | | | [facility] | | + + + + + + | ALT | 40 | 14 - 59 U/L | [facility] | | | | | | [facility] | [facility] | [facility] | | | | | | [facility] | | + + + + + + | Alkaline | 95 | 46 - 116 U/L | [facility] | | | Phosphatase | | | [facility] | | | | | | [facility] | | + + + + + + | Globulin | 3.7 | g/dL | [facility] | [facility] | | | | | | [facility] | | + + + + + + | Albumin/Eri | 1.0 | | [facility] | | | bulin Ratio | | | [facility] | [facility] | | | | [facility] | | + + + + + + | BUN/Creatin | 17.3 | 7.0 - 24.0 | [facility] | | | ine Ratio | | | [facility] | | | | | | [facility] | | + + + + + + + + | Specimen | + + | Blood | + + + + + + + | Performing | Address | City/State/Zipcode | Phone Number | | Organization | | | | + + + + + | [facility] | [address] | [place] | [phone] | | [facility] | | [id number] | | + + + + + CBC with Differential (02/26/2018 5:55 PM PDT) + + + + + + | Component | Value | Ref Range | Performed | Pathologist | | | | | At | Signature | + + + + + + | WBC | 13.8 (H) | 4.3 - 10.4 K/uL | [facility] | | + + + + + + | RBC | 4.70 | 4.12 - 5.30 | [facility] | | | | | M/uL | [facility] | | | [facility] | | + + + + + + | Hemoglobin | 13.4 | 12.4 - 15.7 | [facility] | | | | | g/dL | [facility] | | [facility] | | | [facility] | | + + + + + + | Hct | 40.1 | 37.7 - 47.0 % | [facility] | | + + + + + + | MCV | 85.3 | 82.0 - 97.0 fL | [facility] | [facility] | | + + + + + + | MCH | 28.5 | 27.1 - 32.3 pg | [facility] | [facility] | | | | | | [facility] | | + + + + + + | MCHC | 33.4 | 32.0 - 36.9 | [facility] | | | | | g/dL | [facility] | [facility] | | | [facility] | | + + + + + + | RDW-CV | 12.1 | 0.0 - 17.0 % | [facility] | [facility] | | [facility] | | | | | | [facility] | | + + + + + + | Platelet | 322 | 150 - 450 K/uL | [facility] | | | Count | | | [facility] | | | | | [facility] | | + + + + + + | MPV | 9.4 | 9.4 - 12.3 fL | [place] | | | | | | [facility] | | | | | | [facility]ATORY | | + + + + + + | % | 79.4 (H) | 42.0 - 76.0 % | [place] | | | Neutrophils | | | [facility] | | | | | | LABORATORY | | + + + + + + | % | 13.6 (L) | 20.0 - 40.0 % | [place] | | | Lymphocytes | | | [facility] | | | | | | [facility]ORATORY | | + + + + + + | % Monocytes | 5.6 | 0.0 - 12.0 % | [facility] | | | | | | [facility] | | | | | | [facility]ATORY | | + + + + + + | % | 0.5 | 0.0 - 7.0 % | [facility] | | | Eosinophils | | | [facility] | | | | | | LABORATORY | | + + + + + + | % Basophils | 0.5 | 0.0 - 2.0 % | [facility] | | | | | | [facility] | | | | | | [facility]ATORY | | + + + + + + | % Immature | 0.4 | 0.0 - 0.5 % | [place] | | | Granulocyte | | | [facility] | | | | | | LABORATORY | | + + + + + + | Absolute | 10.93 (H) | 2.50 - 8.50 | [place] | | | Neutrophils | | K/uL | [facility] | | | | | | [facility]ATORY | | + + + + + + | Absolute | 1.87 | 1.00 - 3.80 | [place] | | | Lymphocytes | | K/uL | [facility] | | | | | | [facility]ORY | | + + + + + + | Absolute | 0.77 | 0.00 - 1.60 | [place] | | | Monocytes | | K/uL | [facility] | | | | | | [facility]ATORY | | + + + + + + | Absolute | 0.07 | 0.00 - 0.70 | [place] | | | Eosinophils | | K/uL | [facility] | | | | | | [facility]ATORY | | + + + + + + | Absolute | 0.07 | 0.00 - 0.20 | [place] | | | Basophils | | K/uL | [facility] | | | | | | [facility]ATORY | | + + + + + + | Absolute | 0.05 | 0.00 - 0.15 | [place] | | | Immature | | K/UL | [facility] | | | Granulocyte | | | [facility] | | | s | | | LABORATORY | | + + + + + + | % nRBC | 0 | 0 - 0 per 100 | [place] | | | | | WBC's | [facility] | | | | | | LABORATORY | | + + + + + + | Absolute | 0.00 | 0.00 - 0.01 | [place] | | | nRBC | | K/UL | [facility] | | | | | | [facility]ATORY | | + + + + + + + + | Specimen | + + | Blood | + + + + + + + | Performing | Address | City/State/Zipcode | Phone Number | | Organization | | | | + + + + + | [facility] | [address] | [place] | [phone] | | [facility] | | [id number] | | + + + + + ECG 12 lead (02/26/2018 5:16 PM PDT) + + | Specimen | + + | | + + + + + | Narrative | Performed At | + + + | Heart Rate: 78 | [facility] | | bpmQRS Interval: 104 msQT Interval: 384 msQTC Interval: 438 msP [place]: | [facility] | | 37 degQRS [place]: 32 degT Wave [place]: 13 degP-R Interval: 156 msec- | | | NORMAL ECG -SINUS RHYTHM | | |P [place]: 37 deg | | |QRS [place]: 32 deg | | |T Wave [place]: 13 deg | | |P-R Interval: 156 msec | | |- NORMAL ECG - | | |SINUS RHYTHM | | + + + + +---------+ + + | Performing | Address | City/State/Zipcode | Phone Number | | Organization | | | | + +---------+ + + | [facility] | | | | + +---------+ + + documented in this encounter Visit Diagnoses + + | Diagnosis | + + | Acute pancreatitis - Primary | + + | Acute gallstone pancreatitis | + + | Calculus of gallbladder with acute cholecystitis without obstruction Calculus of | | gallbladder with acute cholecystitis, without mention of obstruction | + + documented in this encounter Administered Medications + +--------+ +------+------+------+ | Medication Order | MAR | Action | Dose | Rate | Site | | | Action | Date | | | | + +--------+ +------+------+------+ | cefTRIAXone (ROCEPHIN) | Given | 02/28/20 | 1 g | | | | injection 1 g 1 g, Intravenous, | | 18 12:04 | | | | | ONCE, 02/26/18 at 2230, For 1 | | AM PDT | | | | | dose, Indications: Pancreatitis | | | | | | + +--------+ +------+------+------+ +---+---+ | | | +---+---+ + +-------+ +--------+---+---+ | clindamycin in dextrose | Given | [...] | | | | + +-------+ +--------+---+---+ +---------+ +--------+ +---+ | New Bag | 02/29/20 | 900 mg | 50 mL/hr | | | | 18 2:20 | | | | | | PM PDT | | | | +---------+ +--------+ +---+ +---+---+ | | | +---+---+ + +-------+ +-------+---+---+ | diphenhydrAMINE (BENADRYL) | Given | 02/27/20 | 25 mg | | | | injection 25 mg 25 mg, | | 18 7:42 | | | | | Intravenous, ONCE, 02/26/18 at | | PM PDT | | | | | 1930, For 1 dose | | | | | | + +-------+ +-------+---+---+ +---+---+ | | | +---+---+ + +-------+ +-------+---+ + | enoxaparin (LOVENOX) 40 mg/0.4 | Given | 02/29/20 | 40 mg | | Abdomen- | | mL injection 40 mg 40 mg, | | 18 9:07 | | | RUQ | | Subcutaneous, EVERY 24 HOURS | | AM PDT | | | | | (Daily), First dose on Sat | | | | | | | 02/27/18 at 0900 | | | | | | + +-------+ +-------+---+ + +-------+ +-------+---+ + | Given | 02/28/20 | 40 mg | | Abdomen- | | | 18 10:13 | | | RLQ | | | AM PDT | | | | +-------+ +-------+---+ + +---+---+ | | | +---+---+ + +-------+ +---------+---+---+ | iopamidol (ISOVUE-300) 300 | Given | 02/27/20 | 100 mLs | | | | mg/mL injection 100 mL 100 mL, | | 18 8:31 | | | | | Intravenous, ONCE PRN, Other, | | PM PDT | | | | | Starting Sat02/26/18 at 2031, For | | | | | | | 1 dose, Cat Scanner | | | | | | + +-------+ +---------+---+---+ + +---+ | | | + +---+ | ketorolac (TORADOL) 30 mg/mL | | | injection Starting 02/28/18 | | | at 1054, For 1 dose, SORWEIDE, | | | LORENZA Jackson: [place], | | + +---+ | | | + +---+ + +-------+ +-------+---+---+ | ketorolac (TORADOL) injection | Given | 02/27/20 | 30 mg | | | | 30 mg 30 mg, Intravenous, ONCE, | | 18 7:41 | | | | | 02/26/18 at 1930, For 1 dose | | PM PDT | | | | + +-------+ +-------+---+---+ +---+---+ | | | +---+---+ + +-------+ +-------+---+---+ | ketorolac (TORADOL) injection | Given | 02/29/20 | 30 mg | | | | 30 mg 30 mg, Intravenous, EVERY | | 18 10:59 | | | | | 6 HOURS (4 times per day), First | | AM PDT | | | | | dose on Sat02/28/18 at 1100, For | | | | | | | 5 days | | | | | | + +-------+ +-------+---+---+ +---+---+ | | | +---+---+ + +---------+ +---+---+---+ | lactated ringers (LR) infusion | New Bag | 02/29/20 | | | | | at 10-100 mL/hr, Intravenous, | | 18 2:34 | | | | | CONTINUOUS, Starting 02/28/18 | | PM PDT | | | | | at 0945, TKO., Pre-op | | | | | | + +---------+ +---+---+---+ +---+---+ | | | +---+---+ + +-------+ +-------+---+---+ | metoclopramide (REGLAN) 5 mg/mL | Given | 02/27/20 | 10 mg | | | | injection 10 mg 10 mg, | | 18 7:41 | | | | | Intravenous, ONCE, 02/26/18 at | | PM PDT | | | | | 1930, For 1 dose, Protect from | | | | | | | light., | | | | | | + +-------+ +-------+---+---+ +---+---+ | | | +---+---+ + +---------+ +--------+-------+---+ | metroNIDAZOLE in saline | New Bag | 02/27/20 | 500 mg | 100 | | | (FLAGYL) IVPB 500 mg 500 mg, | | 18 10:20 | | mL/hr | | | Intravenous, Administer over 1 | | PM PDT | | | | | Hours, ONCE, Sat02/26/18 at 2230, | | | | | | | For 1 dose, Do not refrigerate., | | | | | | | Indications: Pancreatitis | | | | | | + +---------+ +--------+-------+---+ +---+---+ | | | +---+---+ + +-------+ +------+---+---+ | morphine injection 2-6 mg 2-6 | Given | 02/29/20 | 4 mg | | | | mg, Intravenous, EVERY 2 HOURS | | 18 5:31 | | | | | PRN, Pain, Starting Sat02/26/18 | | AM PDT | | | | | at 2342, Slow IV push, not faster | | | | | | | than 2 mg/minute. If ineffective | | | | | | | or not tolerated, use | | | | | | | hydromorphone IV if ordered., | | | | | | + +-------+ +------+---+---+ +-------+ +------+---+---+ | Given | 02/29/20 | 4 mg | | | | | 18 12:04 | | | | | | AM PDT | | | | +-------+ +------+---+---+ | Given | 02/28/20 | 2 mg | | | | | 18 8:48 | | | | | | PM PDT | | | | +-------+ +------+---+---+ + +---+ | | | + +---+ | ondansetron (ZOFRAN ODT) | | | disintegrating tablet 4 mg 4 mg, | | | Oral, EVERY 6 HOURS PRN, Nausea, | | | Vomiting, Starting 02/28/18 | | | at 1542, First line agent, | | | Post-op/Phase II | | + +---+ | | | + +---+ + +-------+ +------+---+---+ | ondansetron (ZOFRAN) injection | Given | 02/29/20 | 4 mg | | | | 4 mg 4 mg, Intravenous, EVERY 6 | | 18 11:20 | | | | | HOURS PRN, Nausea, Vomiting, | | AM PDT | | | | | Starting Sat02/26/18 at 2342, | | | | | | | First line agent, | | | | | | + +-------+ +------+---+---+ +-------+ +------+---+---+ | Given | 02/29/20 | 4 mg | | | | | 18 5:31 | | | | | | AM PDT | | | | +-------+ +------+---+---+ + +---+ | | | + +---+ | ondansetron (ZOFRAN) injection | | | 4 mg 4 mg, Intravenous, EVERY 6 | | | HOURS PRN, Nausea, Vomiting, | | | Starting Sat02/28/18 at 1542, | | | First line agent. Use PO option | | | unless NPO status or unable to | | | tolerate., Post-op/Phase II | | + +---+ | | | + +---+ + +---------+ +--------+-------+---+ | sodium chloride 0.9% (NS) bolus | New Bag | 02/27/20 | 1,000 | 1000 | | | 1,000 mL 1,000 mL, Intravenous, | | 18 10:20 | mLs | mL/hr | | | Administer over 1 Hours, ONCE, | | PM PDT | | | | | 02/26/18 at 2230, For 1 dose | | | | | | + +---------+ +--------+-------+---+ +---+---+ | | | +---+---+ + +---------+ +---+-------+---+ | sodium chloride 0.9% (NS) | New Bag | 02/29/20 | | 125 | | | infusion at 125 mL/hr, | | 18 9:52 | | mL/hr | | | Intravenous, CONTINUOUS, Starting | | AM PDT | | | | | Leighann 02/27/18 at 0000 | | | | | | + +---------+ +---+-------+---+ +---------+ +--------+-------+---+ | New Bag | 02/29/20 | | 125 | | | | 18 1:27 | | mL/hr | | | | AM PDT | | | | +---------+ +--------+-------+---+ | New Bag | 02/28/20 | 1,000 | 125 | | | | 18 5:21 | mLs | mL/hr | | | | PM PDT | | | | +---------+ +--------+-------+---+ +---+---+ | | | +---+---+ documented in this encounter
--- OUTSIDE RECORDS SUMMARY | ~2020-04-07 | XMS | Encounter Summary ---
Demographics + + + | Address | [address] | | | [place] [address] | + + + | Home Phone | | + + + | Preferred Language | Unknown | + + + | Marital Status | | + + + | Scientologist Affiliation | Unknown | + + + | Race | Unknown | + + + | Ethnic Group | Unknown | + + + Author + + + | Author | [facility] | | | and [place] | + + + | Organization | [facility] | | | and [place] | + + + | Address | Unknown | + + + | Phone | Unavailable | + + + Support + + + + + | Name | Relationship | Address | Phone | + + + + + | Catracho Posey | ECON | [address] | | | | | [place] [address] | | + + + + + Care Team Providers + +------+ + | Care Braze Operator Name | Role | Phone | + +------+ + PCP | Unavailable | + +------+ + Encounter Details +--------+ + + + + | Date | Type | Department | Care Team | Description | +--------+ + + + + | 04/12/ | Hospital | [facility] | Todd Garcia | | | 2017 | Encounter | [facility] | [address] [place] | | | | | [facility] [address] | [place], [place] | | | | | [address] [facility] [place], | [address] | | | | | [place] [address] | [phone] | | | | | [phone] | | | +--------+ + + + [...]
--- OUTSIDE RECORDS SUMMARY | ~2020-04-07 | XMS | Encounter Summary ---
Demographics + + + | Address | [address] | | | [place] [address] | + + + | Home Phone | | + + + | Preferred Language | Unknown | + + + | Marital Status | | + + + | Holiness Affiliation | Unknown | + + + | Race | Unknown | + + + | Ethnic Group | Unknown | + + + Author + + + | Author | [facility] | | | and [place] | + + + | Organization | [facility] | | | and [place] | + + + | Address | Unknown | + + + | Phone | Unavailable | + + + Support + + + + + | Name | Relationship | Address | Phone | + + + + + | Catracho Posey | ECON | [address] | | | | | [place] [address] | | + + + + + Care Team Providers + +------+ + | Care End User Support Specialist Name | Role | Phone | + +------+ + PCP | Unavailable | + +------+ + Encounter Details +--------+ + + + + | Date | Type | Department | Care Team | Description | +--------+ + + + + | 10/30/ | Hospital | [facility] | Conversion | | | 2011 | Encounter | [facility] | Transaction, | | | | | AND DELIVERY [address] | Provider Unknown | | | | | RANJIT MARTINEZ | | | | | | [place], [place] | (Fax) | | | | | [address] | | | | | | [phone] | | | +--------+ + + + [...] documented as of this encounter Progress Notes Conversion Transaction, Provider Unknown - 10/30/2012 6:33 PM PSTFormatting of this note m ight be different from the original. Progress Notes by Faith Good RN at 10/30/121832 Author: Faith Good RN Service: (none) Author Type: Registered Nurse Filed: 10/30/121834 Date of Service: 10/30/121832 Status: Signed Chief Medical Officer: Faith Good RN (Registered Nurse) Patient appears to be doing well with by using the football hold. Has good stark pport from the FOB. Discussed baby's sleeping environment and also issues with baby's gassin ess. FAITH GOOD docume nted in this encounter Plan of Treatment Not on filedocumented as of this encounter Visit Diagnoses Not on filedocumented in this encounter"
--- OUTSIDE RECORDS SUMMARY | ~2020-04-07 | XMS | Encounter Summary ---
Demographics + + + | Address | [address] | | | [place] [address] | + + + | Home Phone | | + + + | Preferred Language | Unknown | + + + | Marital Status | | + + + | Restorationism Affiliation | Unknown | + + + | Race | Unknown | + + + | Ethnic Group | Unknown | + + + Author + + + | Author | [facility] | | | and [place] | + + + | Organization | [facility] | | | and [place] | + + + | Address | Unknown | + + + | Phone | Unavailable | + + + Support + + + + + | Name | Relationship | Address | Phone | + + + + + | Catracho Posey | ECON | [address] | | | | | [place] [address] | | + + + + + Care Team Providers + +------+ + | Care Cane Piler Name | Role | Phone | + +------+ + PCP | Unavailable | + +------+ + Encounter Details +--------+ + + + + | Date | Type | Department | Care Team | Description | +--------+ + + + + | 10/26/ | Hospital | [facility] | Carolina Quispe | | | 2011 - | Encounter | [facility] | [address] | | | | [address] | [address] | | | 10/28/ | | [place] [address] | [place] [address] | | | 2011 | | [place], [place] | [phone] | | | | | [address] | | | | | | [phone] | | | +--------+ + + + [...] documented as of this encounter Discharge Summaries Carolina Quispe - 10/28/2012 8:22 AM PSTFormatting of this note might be differen t from the original. Discharge Summaries by Carolina Quispe MD at 10/28/12821 Author: Carolina Quispe MD Service: (none) Author Type: Physician Filed: 10/28/12823 Date of Service: 10/28/12821 Status: Signed Production Support Consultant: Carolina Quispe MD (Physician) Nancy Posey [phone] Admitted on: 10/26/2012 Discharged on 10/28/2012 DISCHARGE DIAGNOSES: S/p PROCEDURES: CONSULTS: None HOSPITAL COURSE: Patient was admitted and delivered On 10/26/12 Please see delivery note Patient's course - pt has 1 episode of fever- and was started on antibiotics- re mained afebrile For 24H. Vitals remained stable, she was a febrile, tolerated diet , ambul ated, breast fed, regained bowel function and voided with no difficulty. Uterus well contrac dar and minimal bleeding. At discharge she was ambulating well, eating a regular diet and her pain was well controlled on oral pain medication. LABS: Postoperative CBC/ WBC Date Value Range Status 10/27/2012 14.7* 3.8 - 11.0 K/uL Final [place] [facility] [place] [address] RBC Date Value Range Status 10/27/2012 3.51* 3.70 - 5.10 M/uL Final Testing performed at [facility] [place] [address];[place] [address] HGB Date Value Range Status 10/27/2012 10.1* 11.3 - 15.5 g/dL Final Testing performed at [facility] [place] [address] 28847 HCT Date Value Range Status 10/27/2012 29.7* 34.0 - 46.0 % Final Testing performed at [facility] [place] [address] MCV Date Value Range Status 10/27/2012 84.5 80.0 - 100.0 fl Final Testing performed at [facility] [place] [address] MCH Date Value Range Status 10/27/2012 28.8 27.0 - 34.0 pg Final Testing performed at [facility] [place] [address];[place] [address] MCHC Date Value Range Status 10/27/2012 34.1 32.0 - 35.5 g/dL Final Testing performed at [facility] [place] [address] RDW SD Date Value Range Status 10/27/2012 43.3 37 - 53 fl Final Testing performed at [facility] [place] [address] 90239 PLT Date Value Range Status 10/27/2012 249 150 - 400 K/uL Final Testing performed at [facility] [place] [address]46 MPV Date Value Range Status 10/27/2012 8.0 Final Testing performed at [facility] [place] [address] NEUTROPHILS ABS Date Value Range Status 04/08/2012 5.1 2.0 - 7.3 K/uL Final LYMPHOCYTES ABS Date Value Range Status 04/08/2012 1.7 1.0 - 3.4 K/uL Final EOSINOPHILS ABS Date Value Range Status 04/08/2012 0.0 0 - 0.5 K/uL Final BASOPHILS ABS Date Value Range Status 04/08/2012 0.0 0 - 0.1 K/uL Final DISCHARGE INSTRUCTIONS: visit 6w F/U prn for fever (> 100.4), Heavy vaginal bleeding, signs of incisional infect ion, increasing pain or tenderness, signs of mastitis. Vaginal Rest: No tampons, douching or intercourse until final post-operative visit. No heavy lifting (>15 to 20#) X 1 month DISCHARGE MEDICATIONS: acetaminophen, qpfykwxnhx-cmrsoqq-cusf vera, diphenhydrAMINE, ibuprofen, lactated ringers, lanolin, oxyCODONE, oxyCODONE, simethicone, sodium chloride, witch radha-glycerin, zolpidem Percocet 5/325, #30 Motrin 600, #30 Colace 100, #30 documented in t his encounter Progress Notes Carolina Quispe - 10/27/2012 8:06 AM PSTFormatting of this note might be differen t from the original. Progress Notes by Carolina Quispe MD at 10/27/12805 Author: Carolina Quispe MD Service: (none) Author Type: Physician Filed: 10/27/12806 Date of Service: 10/27/12805 Status: Signed Production Support Consultant: Carolina Quispe MD (Physician) [facility] Service: Obstetrics & Gynecology Progress Note Day: 1 SUBJECTIVE The patient feels well. Pain is well controlled with current medications. The patient is am bulating well. The patient is tolerating a normal diet. Urinary output is adequate. Flatus has been passed.Pt had fever post delivery and is on antibiotics. The baby is well but got IV . Patient is trying breast feeding. OBJECTIVE Vital Signs: BP 135/73 | Pulse 121 | Temp(Src) 98.4 F (36.9 C) (Oral) | Resp 22 | Ht 1.676 m (5' 6") | Wt 117.845 kg (259 lb 12.8 oz) | BMI 41.93 kg/m2 | SpO2 100% | LMP 01/21/2012 | Breastfee ding? Yes General: alert, appears stated age and cooperative Bowel Sounds: active Uterine Fundus: firm perineum intact Lochia: appropriate Extremities: none DATA Blood Type: Lab Results Component Value Date ABORH A NEGATIVE 10/26/2012 ABORH Testing performed at [facility] [place] [address] 10/26/2012 WBC Date Value Range Status 10/27/2012 14.7* 3.8 - 11.0 K/uL Final Testing performed at [facility] [place] [address] 79020 RBC Date Value Range Status 10/27/2012 3.51* 3.70 - 5.10 M/uL Final Testing performed at [facility] [place] [address] HGB Date Value Range Status 10/27/2012 10.1* 11.3 - 15.5 g/dL Final Testing performed at [facility] [place] [address] 28054 HCT Date Value Range Status 10/27/2012 29.7* 34.0 - 46.0 % Final Testing performed at [facility] [place] [address] 75624 MCV Date Value Range Status 10/27/2012 84.5 80.0 - 100.0 fl Final Testing performed at [facility] [place] [address] 61419 MCH Date Value Range Status 10/27/2012 28.8 27.0 - 34.0 pg Final Testing performed at [facility] [place] [address]40 MCHC Date Value Range Status 10/27/2012 34.1 32.0 - 35.5 g/dL Final Testing performed at [facility] [place] [address] 05619 RDW SD Date Value Range Status 10/27/2012 43.3 37 - 53 fl Final Testing performed at [facility] [place] [address] 46746 PLT Date Value Range Status 10/27/2012 249 150 - 400 K/uL Final Testing performed at [facility] [facility];[place] [address] MPV Date Value Range Status 10/27/2012 8.0 Final Testing performed at [facility] [facility];[place] [address] NEUTROPHILS ABS Date Value Range Status 04/08/2012 5.1 2.0 - 7.3 K/uL Final LYMPHOCYTES ABS Date Value Range Status 04/08/2012 1.7 1.0 - 3.4 K/uL Final EOSINOPHILS ABS Date Value Range Status 04/08/2012 0.0 0 - 0.5 K/uL Final BASOPHILS ABS Date Value Range Status 04/08/2012 0.0 0 - 0.1 K/uL Final PROBLEM LIST Active Problems: * No active hospital problems. * ASSESSMENT & PLAN Status vaginal delivery. Doing well. Continue current care Cont Antibiotics till Tomorrow if remains afebrile . onversion Pandey saction, Provider Unknown - 10/27/2012 12:20 AM PSTFormatting of this note might be differen t from the original. Progress Notes by Rea Cavazos) Alec at 10/27/1219 Author: Rea Cavazos) Alec Service: (none) Author Type: Registered Nurse Filed: 10/27/1221 Date of Service: 10/27/1219 Status: Signed Production Support Consultant: Rea Michael (Student) Delivery of viable male place on pre-warmed warmer and stimulated. Pit bolus s tarted. onver aretha Transaction, Provider Unknown - 10/26/2012 11:58 PM PST Progress Notes by Rea Cavazos) Alec at 10/26/122357 Author: Rea Cavazos) Alec Service: (none) Author Type: Registered Nurse Filed: 10/27/12 0001 Date of Service: 10/26/122357 Status: Signed Production Support Consultant: Rea Cavazos) Alec Called , about temp receive new orders for antibiotics. Carolina Moss - 10/26/2012 12:04 PM PST Progress Notes by Carolina Quispe MD at 10/26/12 120 Author: Carolina Quispe MD Service: (none) Author Type: Physician Filed: 10/26/121204 Date of Service: 10/26/121203 Status: Signed Production Support Consultant: Carolina Quispe MD (Physician) Pt having some ctx Filed Vitals: 10/26/12 1024 BP: 120/70 Pulse: 133 Temp: 98.6 F (37 C) Resp: 20 FHR cat 1 VE 5cm 80% -2 AROM done clear Discussed epidural Will monitor closely documented in t his encounter Plan of Treatment Not on filedocumented as of this encounter Procedures + +--------+ + + + | Procedure Name | Priori | Date/Time | Associated Diagnosis | Comments | | | ty | | | | + +--------+ + + + | TISSUE REQUEST FOR | Routin | 10/26/2012 | | Results for this | | PATHOLOGY (NON-ORD) | e | 12:00 AM | | procedure are in the | | | | PST | | results section. | + +--------+ + + + documented in this encounter Results Tissue Request For Pathology (10/26/2012 12:00 AM PST) + + | Specimen | + + | Soft tissue sample | | (specimen) | + + + + + | Narrative | Performed At | + + + | CASE: [id number] PATIENT: [facility] Surgical Pathology | EXTERNAL LAB | | Report PATHOLOGIC DIAGNOSIS: PLACENTA ([phone] GRAMS), UMBILICAL | | | CORD AND MEMBRANES: - PLACENTAL WEIGHT: APPROXIMATELY | | | 80TH PERCENTILE FOR GESTATIONAL AGE. - CHORIONIC VILLI WITH o | | | APPROPRIATE MATURATION FOR GESTATIONAL AGE. o FOCAL | | | MICROCALCIFICATIONS. o NO SIGNIFICANT VILLOUS INFARCTION | | | IDENTIFIED. o NO EVIDENCE OF TROPHOBLASTIC DISEASE. - | | | THREE VESSEL UMBILICAL CORD WITHOUT PATHOLOGIC ABNORMALITY. - | | | MEMBRANES WITH NO PATHOLOGIC ABNORMALITY. - NO EVIDENCE | | | OF AN INFECTIOUS OR INFLAMMATORY PROCESS. TWK:rosak:C2NR | | | CLINICAL HISTORY: 10/26/2012 at 21:21 H. Mother's age: 26, OB history: | | | P: 1 A: 0 (spont/elect). Gestation age: 39+6, 's weight: | | | 3754 grams, score: 9-9, Rh: A- (Rhogam yes/no), Rubella: imn, | | | RPR: neg. GROSS DESCRIPTION: One specimen is received in one | | | container, labeled with the patient's name: A. Received | | | designated "placenta and cord" consists of a 19.1 x 17.3 x 1.9 cm | | | discoid placenta. The 41.0 x 1.0 cm umbilical cord inserts 8.1 cm | | | from the nearest placental margin; it shows the usual spiraling. Cut | | | sections through the cord reveal three vessels. In accordance to | | | protocol, approximately 18.0 cm of umbilical cord is retained by the | | | Center for possible future studies. The placental membranes are | | | translucent and wrinkled with adherent blood clot. The surfaces | | | are blue-purple and shiny with the usual radiating vasculature. The | | | maternal surface is duval-brown and spongy with well-defined | | | cotyledons appearing intact. The trimmed placenta weighs 589 grams. | | | Cut sections reveal a deep maroon placenta parenchyma. Basal plate | | | fibrin is of normal thickness. No areas of infarction are grossly | | | identified. Cassette summary: (A1) umbilical cord and membranes; | | | (A2) placenta parenchyma; (A3) placenta parenchyma. JS | | | MICROSCOPIC EXAMINATION: Histologic sections of all submitted | | | blocks are examined by light microscopy. These findings, together | | | with the gross examination, support the pathologic diagnosis. | | | This report has been prepared using a voice recognition system. The | | | report was reviewed for accuracy, however, sound-alike word errors, | | | addition and/or deletions may occur. If there is any question about | | | this report please contact the originating pathologist. | | | Jeremy Lucero MD Electronically signed Nov 03, 2012 3:25:01PM | | + + + + +---------+ + + | Performing | Address | City/State/Zipcode | Phone Number | | Organization | | | | + +---------+ + + | EXTERNAL LAB | | | | + +---------+ + + documented in this encounter Visit Diagnoses Not on filedocumented in this encounter
--- OUTSIDE RECORDS SUMMARY | ~2020-04-07 | XMS | Encounter Summary ---
Demographics + + + | Address | [address] | | | [place] [address] | + + + | Home Phone | | + + + | Preferred Language | Unknown | + + + | Marital Status | | + + + | Taoism Affiliation | Unknown | + + + | Race | Unknown | + + + | Ethnic Group | Unknown | + + + Author + + + | Author | [facility] | | | and [place] | + + + | Organization | [facility] | | | and [place] | + + + | Address | Unknown | + + + | Phone | Unavailable | + + + Support + + + + + | Name | Relationship | Address | Phone | + + + + + | Catracho Posey | ECON | [address] | | | | | [place] [address] | | + + + + + Care Team Providers + +------+ + | Care Dock Clerk Name | Role | Phone | + +------+ + | No, Physician | PCP | Unavailable | + +------+ + Reason for Visit +--------+ + | Reason | Comments | +--------+ + | Other | WIC Triage | +--------+ + Encounter Details +--------+ + + + + | Date | Type | Department | Care Team | Description | +--------+ + + + + | 11/27/ | Telephone | [place] [facility] | Erin Eason, | Other ([facility] Triage) | | 2017 | | [facility] | NET FRONT END DEVELOPER [address] | | | | | [facility] [address] | [place] [address] | | | | [address] [place], | [phone] | | | | | [place] [address] | | | | | | [phone] | | | +--------+ + + + [...] | | | + +---+---+---+ + + + | Sex Assigned at [...]
--- OUTSIDE RECORDS SUMMARY | ~2020-04-07 | XMS | Encounter Summary ---
Demographics + + + | Address | [address] | | | [place] [address] | + + + | Home Phone | | + + + | Preferred Language | Unknown | + + + | Marital Status | | + + + | Restorationist Affiliation | Unknown | + + + | Race | Unknown | + + + | Ethnic Group | Unknown | + + + Author + + + | Author | [facility] | | | and [place] | + + + | Organization | [facility] | | | and [place] | + + + | Address | Unknown | + + + | Phone | Unavailable | + + + Support + + + + + | Name | Relationship | Address | Phone | + + + + + | Catracho Posey | ECON | [address] | | | | | [place] [address] | | + + + + + Care Team Providers + +------+ + | Care Front End Manager Name | Role | Phone | + +------+ + PCP | Unavailable | + +------+ + Encounter Details +--------+ + + + + | Date | Type | Department | Care Team | Description | +--------+ + + + + | 09/15/ | Hospital | [facility] | Sherif Gunn, | | | 2011 | Encounter | [facility]ICAL [facility] LABOR | [address] | | | | | [address] | [address] [facility] | | | | | [place] | [place] [address] | | | | | [place] | [phone] | | | | | [address] | | | | | | [phone] | | | +--------+ + + + [...] Progress Notes Conversion Transaction, Provider Unknown - 09/15/2012 1:32 PM PDTFormatting of this note m ight be different from the original. Progress Notes by Michelle Flowers RN at 09/15/121331 Author: Michelle Flowers RN Service: (none) Author Type: Registered Nurse Filed: 09/15/121336 Date of Service: 09/15/121331 Status: Signed Sas Etl Developer: Michelle Flowers RN (Registered Nurse) Pt states she has not had any complications from fall No cramping or bleeding or decreased movement. Monitoring shows reactive fhr tracing and occ. Cx. Pt states she has not felt any contractions and mainly has muscle soreness and stiffness fr om fall No apparent bruising or other complications from fall Pt instructed to return to hosp if she has any cramping bleeding or abdominal pain. Also t o return if she notices any decreased movement. Instructed to keep dr alves For next Saturday as scheduled. docume nted in this encounter Plan of Treatment Not on filedocumented as of this encounter Visit Diagnoses Not on filedocumented in this encounter"
--- OUTSIDE RECORDS SUMMARY | ~2020-04-07 | XMS | Encounter Summary ---
Demographics + + + | Address | [address] | | | [place] [address] | + + + | Home Phone | | + + + | Preferred Language | Unknown | + + + | Marital Status | | + + + | Cheondoism Affiliation | Unknown | + + + | Race | Unknown | + + + | Ethnic Group | Unknown | + + + Author + + + | Author | [facility] | | | and [place] | + + + | Organization | [facility] | | | and [place] | + + + | Address | Unknown | + + + | Phone | Unavailable | + + + Support + + + + + | Name | Relationship | Address | Phone | + + + + + | Catracho Posey | ECON | [address] | | | | | [place] [address] | | + + + + + Care Team Providers + +------+ + | Care Delinquent Account Clerk Name | Role | Phone | + +------+ + PCP | Unavailable | + +------+ + Encounter Details +--------+ + + + + | Date | Type | Department | Care Team | Description | +--------+ + + + + | 10/05/ | Hospital | [facility] | Eneida Heard | | | 2011 | Encounter | [facility] | MD [address] | | | | | [address] | [address] | | | | | [place] | [place] [address] | | | | | [place], [place] | [phone] | | | | | [address] | | | | | | [phone] | | | +--------+ + + + [...] documented as of this encounter Progress Notes Eneida Heard MD - 10/05/2012 3:16 PM PST Progress Notes by Eneida Heard MD at 10/05/12 1516 Author: Eneida Heard MD Service: Obstetrics/Gynecology Author Type: Physician Filed: 02/17/13 1520 Date of Service: 10/05/121515 Status: Signed Photo Finish Photographer: Eneida Heard MD (Physician) [facility] Service: Obstetrics & Gynecology Triage Progress Note Hospital Day: LOS: 0 days SUBJECTIVE The patient is a 27 y.o. female at 39w6d admitted for observation, she complaiins o f possible leakage of fluid. Reports active fetus, denies other probs. No signif contraction s Scheduled Medications Continuous Infusions PRN Medications OBJECTIVE Vital Signs: BP 120/57 | Pulse 144 | Temp(Src) 97.8 F (36.6 C) (Oral) | Resp 20 | Ht 1.676 m (5' 6") | Wt 116.574 kg (257 lb) | BMI 41.48 kg/m2 | LMP 01/21/2012 Exam not consistant with rom amnisure neg fhrt reactive chart reviewed DATA PROBLEM LIST Active Problems: poss leakage of fluid ASSESSMENT & PLAN Normal exam, not ruptured , false labor, usu precautions given ENEIDA HEARD MD 02/17/2013 documented in thi s encounter Plan of Treatment Not on filedocumented as of this encounter Procedures + +--------+ + + + | Procedure Name | Priori | Date/Time | Associated Diagnosis | Comments | | | ty | | | | + +--------+ + + + | US BIOPHYSICAL | Routin | 10/05/2012 | | Results for this | | PROFILE WO NON | e | 2:06 PM | | procedure are in the | | STRESS | | PST | | results section. | + +--------+ + + + | HISTORICAL | Timed | 10/05/2012 | | Results for this | | MICROBIOLOGY RESULT | | 12:17 PM | | procedure are in the | | | | PST | | results section. | + +--------+ + + + documented in this encounter Results US BPP wo Non Stress (10/05/2012 2:06 PM PST) + + | Specimen | + + | | + + + + + | Narrative | Performed At | + + + | [facility] BIOPHYSICAL PROFILE WO NON STRESS TESTING | | | 10/05/2012 1:18 PM History: 27 years. Female. Third trimester | | | with decreasing body movements and cardiac | | | deceleration. Technique: A pulse Doppler duplex transducer with | | | color mapping was utilized, with duval scale and color in each | | | recording in multiple anatomic planes. Transabdominal ultrasound only | | | was performed. Findings: A single live fetus is visualized in | | | cephalic position. The placenta is anterior, without followed parts. | | | The heart rate is 142 bpm. Gross body movement is | | | decreased. The extremities show flexion, indicating muscular | | | tone. diaphragmatic motion is visualized, consistent with | | | breathing. The amniotic fluid index is 7.7 cm, within normal limits. | | | The biophysical profile score is 6/8. Conclusions: 1. | | | The biophysical profile score is 6/8, showing deficient gross | | | body movements. | | + + + + ---+ | Procedure Note | + ---+ | Chadd Torrez Conversion - 07/25/2019 2:44 AM PDT [facility] | | PROFILE WO NON STRESS [id number]/4/2012 1:18 PM History: 27 years. Female. Third | | trimester with decreasing body movements and cardiac deceleration. | | Technique: A pulse Doppler duplex transducer with color mapping was utilized, with duval | | scale and color in each recording in multiple anatomic planes. Transabdominal | | ultrasound only was performed. Findings: A single live fetus is visualized in cephalic | | position. The placenta is anterior, without followed parts. The heart rate is 142 | | bpm. Gross body movement is decreased. The extremities show flexion, | | indicating muscular tone. diaphragmatic motion is visualized, consistent with | | breathing. The amniotic fluid index is 7.7 cm, within normal limits. The | | biophysical profile score is 6/8. Conclusions:1. The biophysical profile score is | | 6/8, showing deficient gross body movements. | |Conclusions: | |1. The biophysical profile score is 6/8, showing deficient gross body movement s. | | | | | + ---+ HISTORICAL MICROBIOLOGY RESULT (10/05/2012 12:17 PM PST) + + | Specimen | + + | | + + + + + | Narrative | Performed At | + + + | Placental Alpha1 Microglobulin NEGATIVE Testing performed | EXTERNAL LAB | | at [facility];[address];[place] [address] | | + + + + +---------+ + + | Performing | Address | City/State/Zipcode | Phone Number | | Organization | | | | + +---------+ + + | EXTERNAL LAB | | | | + +---------+ + + documented in this encounter Visit Diagnoses Not on filedocumented in this encounter
--- OUTSIDE RECORDS SUMMARY | ~2020-04-07 | XMS | Encounter Summary ---
Demographics + + + | Address | [address] | | | [place] [address] | + + + | Home Phone | | + + + | Preferred Language | Unknown | + + + | Marital Status | | + + + | Moravian Affiliation | Unknown | + + + | Race | Unknown | + + + | Ethnic Group | Unknown | + + + Author + + + | Author | [facility] | | | and [place] | + + + | Organization | [facility] | | | and [place] | + + + | Address | Unknown | + + + | Phone | Unavailable | + + + Support + + + + + | Name | Relationship | Address | Phone | + + + + + | Catracho Posey | ECON | [address] | | | | | [place] [address] | | + + + + + Care Team Providers + +------+ + | Care Service Crew Supervisor Name | Role | Phone | + +------+ + PCP | Unavailable | + +------+ + Encounter Details +--------+ + + + + | Date | Type | Department | Care Team | Description | +--------+ + + + + | 09/28/ | Hospital | [facility] | Conversion | | | 2011 | Encounter | CENTER OB PROCEDURES | Transaction, | | | | | [address] | Provider Unknown | | | | | [place], [place] | | | | | | [address] | (Fax) | | | | | [phone] | | | +--------+ + + + [...]
--- OUTSIDE RECORDS SUMMARY | ~2020-04-07 | XMS | Encounter Summary ---
Demographics + + + | Address | [address] | | | [place] [address] | + + + | Home Phone | | + + + | Preferred Language | Unknown | + + + | Marital Status | | + + + | Temple Affiliation | Unknown | + + + | Race | Unknown | + + + | Ethnic Group | Unknown | + + + Author + + + | Author | [facility] | | | and [place] | + + + | Organization | [facility] | | | and [place] | + + + | Address | Unknown | + + + | Phone | Unavailable | + + + Support + + + + + | Name | Relationship | Address | Phone | + + + + + | Catracho Posey | ECON | [address] | | | | | [place] [address] | | + + + + + Care Team Providers + +------+ + | Care Bar Machine Operator Name | Role | Phone | + +------+ + | No, Physician | PCP | Unavailable | + +------+ + Reason for Visit + + + | Reason | Comments | + + + | Chest Pain | | + + + Encounter Details +--------+---------+ + + + | Date | Type | Department | Care Team | Description | +--------+---------+ + + + | 02/28/ | Surgery | [facility] | Dustin, | LAPAROSCOPIC | | 2018 | | [facility] | Alfredo Pisano, | CHOLECYSTECTOMY | | | | [address] | [address] | | | | | [place], [place] | [place], [place] | | | | | [address] | [address] | | | | | [phone] | [phone] | | | | | | | | +--------+---------+ + + + Social History + +-------+ [...] MEDICAL HOSPITALIST DISCHARGE SUMMARY Pt. Name/Age/: Nancy Ivette Posey 32 y.o. 1985 Date of Admission: [...] sent through Care Everywhere.Cholecystectomy (Laparoscopic), Discharge Instructions (Turkmen)documented in this encounter Medications at Time of [...] MEDICAL HOSPITALIST TEAM PROGRESS NOTE Name:Nancy Posey Hospital Day # 2 Reason for admission and [...] MEDICAL HOSPITALIST TEAM PROGRESS NOTE Name:Nancyhuey Posey [facility] Day # 1 Reason for admission and [...] GLU 126* Labs/Studies: Recent Labs Lab 02/27/18 0502/26/18 1755 WBC 8.5 13.8* HGB 12.4 13.4 HCT 37.3* 40.1 PLT 304 322 Recent Labs Lab 02/27/18 0502/26/18 1755 NA -- 141 K -- 4.2 [...] where these sub stitutions have occurred. Yumiko Howard, PharmD - 02/27/2018 8:48 AM PDTMedication History Completed Medication history was completed using: -interview with Patient Major discrepancies noted: Patient stated she takes a probiotic and a hair, skin and nail. Please see FAB[employer] WORKER med list for updated medication list. Electronically [...] + + | [facility] [facility] | [address] | [place] | [phone] | | HOSPITAL LABORATORY | | [address] | | + + + + + [...] + + | [place] [facility] | [address] | [place] | [phone] | | HOSPITAL LABORATORY | | [address] | | + + + + + [...] chronic | | | cholecystitis. - Cholelithiasis. DINORA:cml:C2NR MICROSCOPIC | | | EXAMINATION: Histologic sections [...] | nodules or masses are grossly appreciated. Plastic Production Machine Setter sections | | | are submitted in one cassette (A1). JDS:conner PERFORMING | | | LABORATORY: The technical component was performed by [facility] | | | [facility], [address], [place] | | | [place], [place] [address] (Supervisor Correspondence Section: Joe Fall MD; CLIA# | | | [id number]). Professional interpretation was performed by [facility] | | | [facility], [address], [address], [place] | | | [place] [address] (Supervisor Correspondence Section: Joe Fall MD; CLIA# | | | [id number]). Diagnostician: Joe Fall MD Pathologist | | | Electronically Signed 03/04/2018 | | + + + + +---------+ + + | Performing | Address | City/State[facility] | Phone Number | | Organization | [...] + + | [facility] | [address] | [place] | [phone] | | HOSPITAL LABORATORY | | [address] | | + + + + + [...] | [facility] | | | | mg/dL [id number] - | | HOSPITAL | | | | 129 mg/dL Near | | LABORATORY | | | | [id number] - 159 mg/dL | | | | | | [id number] - 189 | | | | | [...] + + | [facility] | [address] | [place] | [phone] | | HOSPITAL LABORATORY | | [address] | | + + + + + [...] + + | [facility] [facility] | [address] | [place] | [phone] | | HOSPITAL LAB[facility]ATORY | | [address] | | + + + + + [...] + + | [facility] [facility] | [address] | [place] | [phone] | | HOSPITAL LAB[facility]ATORY | | [address] | | + + + + + [...] + + | [facility] [facility] | [address] | [place] | [phone] | | HOSPITAL LAB[facility]ATORY | | [address] | | + + + + + [...] cholelithiasis.Dictated by: Xavier Mitchellectronically Signed by: Xavier Dykes on 02/27/2018 9:01 AM | |The liver [...] - 1.030 | [place] | | | [place], | | | [facility] | | | [...] + + | [place] [facility] | [address] | [place] | [phone] | | HOSPITAL LAB[facility]ATORY | | [address] | | + + + + + [...] | Shan, Rad Results In - 02/27/2018 8:15 AM PDT [...] + + | [place] [facility] | [address] | [place] | [phone] | | HOSPITAL LAB[facility]ATORY | | [address] | | + + + + + [...] + + | [facility] | [address] | [place] | [phone] | | HOSPITAL LABORATORY | | [address] | | + + + + + [...] such as unstable angina or | [facility] | | non-Q wave myocardial infarction, cardiac troponin I levels provide | HOSPITAL | | useful prognostic information and aid in early detection of such | LABORATORY | | patients with an increased risk of . The Risk Stratification | | | cutpoint for the Troponin I method is 0.1 ng/mL. The diagnostic | | | cutoff point for the diagnosis of ND is 0.8 ng/mL for the Troponin I | | | method. | | + + + + + + + + | Performing | Address | City/State/Zipcode | Phone Number | | Organization | | | | + + + + + | [facility] | [address] | [place] | [phone] | | HOSPITAL LABORATORY | | [address] | | + + + + + [...] | Diluted to obtain result | [facility] | | | HOSPITAL | | | LABORATORY | + + + + + + + + | Performing | Address | City/State/Zipcode | Phone Number | | Organization | | | | + + + + + | [facility] | [address] | [place] | [phone] | | HOSPITAL LAB[facility]ATORY | | [address] | | + + + + + [...] | mL/min/1.73m2 | [facility] | | | EMIRATI | RATE,ESTIMATED | | HOSPITAL | | | | mL/min/1.85l9Komr than | | LABORATORY | | | [...] + + | [facility] | [address] | [place] | [phone] | | HOSPITAL LABORATORY | | [address] | | + + + + + [...] + + | [facility] | [address] | [place] | [phone] | | HOSPITAL LABORATORY | | [address] | | + + + + + ECG 12 lead (02/26/2018 5:16 PM PDT) + + | Specimen | + + | | + + + + + | Narrative | Performed At | + + + | Heart Rate: 78 | [facility] | | bpmQRS Interval: 104 msQT Interval: 384 msQTC Interval: 438 msP [place]: | [facility] | | 37 degQRS [place]: 32 degT Wave [place]: 13 degP-R Interval: 156 msec- | | | NORMAL ECG -SINUS RHYTHM | | |P [place]: 37 deg | | |QRS [place]: 32 deg | | |T Wave [place]: 13 deg | | |P-R Interval: 156 msec | | |- NORMAL ECG - | | |SINUS RHYTHM | | + + + + +---------+ + + | Performing | Address | City/State/Zipcode | Phone Number | | Organization | | | | + +---------+ + + | [facility] | | | | + +---------+ + + documented in this encounter Visit Diagnoses Not on filedocumented in this encounter Administered Medications + +--------+ +-------+------+ + | Medication Order | MAR | Action | Dose | Rate | Site | | | Action | Date | | | | + +--------+ +-------+------+ + | enoxaparin (LOVENOX) 40 mg/0.4 | Given | 02/29/20 | 40 mg | | Abdomen- | | mL injection 40 mg 40 mg, | | 18 9:07 | | | RUQ | | Subcutaneous, EVERY 24 HOURS | | AM PDT | | | | | (Daily), First dose on [facility] | | | | | | | 02/27/18 at 0900 | | | | | | + +--------+ +-------+------+ + +-------+ +-------+---+ + | Given | [...] | | | | PRN, Pain, Starting 02/26/18 | | AM PDT | | | [...] PDT | | | | | Starting 02/26/18 at 2342, | | | | | [...] PRN, Nausea, Vomiting, | | | Starting 02/28/18 at 1542, | | | First line agent. Use PO option | | | unless NPO status or unable to | | | tolerate., Post-op/Phase II | | + +---+ | | | + +---+ + +-------+ +--------+---+---+ | ropivacaine (NAROPIN) 5 mg/mL | Given | 02/29/20 | 15 mLs | | | | (0.5%) injection PRN, Starting | | 18 3:30 | | | | | 02/28/18 at 1530, Intra-op | | PM PDT | | | | + +-------+ +--------+---+---+ +---+---+ | | | +---+---+ + +---------+ [...]
--- OUTSIDE RECORDS SUMMARY | ~2020-04-07 | XMS | Encounter Summary ---
Demographics + + + | Address | [address] | | | [place] [address] | + + + | Home Phone | | + + + | Preferred Language | Unknown | + + + | Marital Status | | + + + | Mu-Ism Affiliation | Unknown | + + + | Race | Unknown | + + + | Ethnic Group | Unknown | + + + Author + + + | Author | [facility] | | | and [place] | + + + | Organization | [facility] | | | and [place] | + + + | Address | Unknown | + + + | Phone | Unavailable | + + + Support + + + + + | Name | Relationship | Address | Phone | + + + + + | Catracho Posey | ECON | [address] | | | | | [place] [address] | | + + + + + Care Team Providers + +------+ + | Care Microbiology Coordinator Name | Role | Phone | + +------+ + | No, Physician | PCP | Unavailable | + +------+ + Reason for Visit + + + | Reason | Comments | + + + | Shoulder Pain | x2days | + + + Encounter Details +--------+---------+ + + + | Date | Type | Department | Care Team | Description | +--------+---------+ + + + | 11/27/ | Office | [facility] | Abel, | Acute pain of right | | 2017 | Visit | [facility] | [place], [place] [address] | shoulder (Primary | | | | [facility] [address] [place], | Dx); Pleuritic pain | | | | [address] [place], | [place] [address] | | | | | [place] [address] | [phone] | | | | | [phone] | | | | | | | Erin Eason, SECURITY DISPATCHER | | | | | | [address] | | | | | | [place] [address] | | | | | | [phone] | | | | | | | [...] + + + | Blood Pressure | 120/88 | 11/27/2017 6:17 PM | | | | | PST | | + + + + + | Pulse | 82 | 11/27/2017 6:17 PM | | | | | PST | | + + + + + | Temperature | 37.6 C (99.7 F) | 11/27/2017 6:17 PM | | | | | PST | | + + + + + | Respiratory Rate | 16 | 11/27/2017 6:17 PM | | | | | PST | | + + + + + | Oxygen Saturation | 98% | 11/27/2017 6:17 PM | | | | | PST | | + + + + + | Inhaled Oxygen | - | - | | | Concentration | | | | + + + + + | Weight | - | - | | + + + + + | Height | - | - | | + + + + + | Body Mass Index | - | - | | + + + + + documented in this encounter Progress Notes Erin Eason FNP - 11/27/2017 6:00 PM PSTFormatting of this note might be different fro m the original. Subjective: Patient ID: Nancy Posey is a 32 y.o. female. HPI She presents with right anterior shoulder pain that hurts with deep breaths 8/10 on the luís n scale for one day. She has not been coughing and denies current URI or asthma. She has not injured herself and this has never happened before. Patient's medications, allergies, past medical, surgical, social and family histories were obtained and reviewed as appropriate. Review of Systems Objective: Vitals: 11/27/17 1817 BP: 120/88 Pulse: 82 Resp: 16 Temp: 37.6 C (99.7 F) PainSc: 9 Physical Exam Pulmonary/Chest: Effort normal and breath sounds normal. No respiratory distress. She has n o wheezes. She has no rales. Musculoskeletal: No tenderness to palpation of her ribs or chest. No results found for this or any previous visit. None Assessment: 1. Acute pain of right shoulder 2. Pleuritic pain Plan: Discussed case with Nisha in the Er. Given she is having painful breathing with deep breat hs with no obvious reason for these symptoms she was sent to the ER for more urgent evaluati on. No Follow-up on file. NIGEL Andino01/28/201718:41 [facility] documented in this en counter Plan of Treatment Not on filedocumented as of this encounter Visit Diagnoses + + | Diagnosis | + + | Acute pain of right shoulder - Primary | + + | Pleuritic pain Painful respiration | + + documented in this encounter"
--- OUTSIDE RECORDS SUMMARY | ~2020-04-07 | XMS | Encounter Summary ---
Demographics + + + | Address | [address] | | | [place] [address] | + + + | Home Phone | | + + + | Preferred Language | Unknown | + + + | Marital Status | | + + + | Religion Affiliation | Unknown | + + + | Race | Unknown | + + + | Ethnic Group | Unknown | + + + Author + + + | Author | [facility] | | | and [place] | + + + | Organization | [facility] | | | and [place] | + + + | Address | Unknown | + + + | Phone | Unavailable | + + + Support + + + + + | Name | Relationship | Address | Phone | + + + + + | Catracho Posey | ECON | [address] | | | | | [place] [address] | | + + + + + Care Team Providers + +------+ + | Care Junior Network Administrator Name | Role | Phone | + +------+ + | No, Physician | PCP | Unavailable | + +------+ + Reason for Visit + + + | Reason | Comments | + + + | Follow-up | Sofy | + + + Encounter Details +--------+---------+ + + + | Date | Type | Department | Care Team | Description | +--------+---------+ + + + | 03/17/ | Office | [facility] | Dustin, | Calculus of | | 2018 | Visit | [facility] | Alfredo Pisano, | gallbladder with | | | | SURGERY [address] | MD [address] | chronic | | | | DR [address]ON F[place], | [place], [place] | cholecystitis | | | | [place] [address] | [address] | without obstruction | | | | [phone] | [phone] | (Primary Dx) | | | | | | | [...] + + + | Blood Pressure | 128/84 | 03/17/2018 3:42 PM | | | | | PDT | | + + + + + | Pulse | 74 | 03/17/2018 3:42 PM | | | | | PDT | | + + + + + | Temperature | - | - | | + + + + + | Respiratory Rate | 16 | 03/17/2018 3:42 PM | | | | | PDT | | + + + + + | Oxygen Saturation | 98% | 03/17/2018 3:42 PM | | | | | PDT | | + + + + + | Inhaled Oxygen | - | - | | | Concentration | | | | + + + + + | Weight | 128.4 kg (283 lb) | 03/17/2018 3:42 PM | | | | | PDT | | + + + + + | Height | 167.6 cm (5' 6") | 03/17/2018 3:42 PM | | | | | PDT | | + + + + + | Body Mass Index | 45.68 | 03/17/2018 3:42 PM | | | | | PDT [...] + documented as of this encounter Progress Alfredo Geronimo MD - 03/17/2018 3:45 PM PDTSurgery Follow Up DATE OF SURGERY: 02/28/18 OPERATION PERFORMED: Laparoscopic cholecystectomy PATHOLOGY: Cholelithiasis with chronic cholecystitis POST-PROCEDURE COURSE: Nancy Posey has had a fairly normal postoperative course after her laparoscopic chol ecystectomy for gallstone pancreatitis. She's been eating well and she's been moving her eleazar wels fine without evidence of any postcholecystectomy diarrhea.. PHYSICAL EXAM: No acute distress BP 128/84 | Pulse 74 | Resp 16 | Ht 1.676 m (5' 6") | Wt 128.4 kg (283 lb) | LMP (LMP Unknown) | SpO2 98% | BMI 45.68 kg/m Abdomen is soft and nontender surgical wounds revealed nicely. DISPOSITION: Stable for follow up with me PRN. Patient is encouraged to contact me with any questions o r concerns that may arise. Electronically signed by: Alfredo Chan MD 03/17/2018 15:49 This note was transcribed using voice recognition software; there may be speech recognition errors which escaped detection during perforating. document ed in this encounter Plan of Treatment Not on filedocumented as of this encounter Visit Diagnoses + + | Diagnosis | + + | Calculus of gallbladder with chronic cholecystitis without obstruction - Primary | | Calculus of gallbladder with other cholecystitis, without mention of obstruction | + + documented in this encounter
--- OUTSIDE RECORDS SUMMARY | ~2020-04-07 | XMS | Clinical Summary ---
Demographics + + + | Address | [address] | | | [place] [address] | + + + | Home Phone | | + + + | Preferred Language | Unknown | + + + | Marital Status | | + + + | Evangelical Affiliation | Unknown | + + + | Race | Unknown | + + + | Ethnic Group | Unknown | + + + Author + + + | Author | [facility] | | | and [place] | + + + | Organization | [facility] | | | and [place] | + + + | Address | Unknown | + + + | Phone | Unavailable | + + + Support + + + + + | Name | Relationship | Address | Phone | + + + + + | Catracho Posey | ECON | [address] | | | | | [place] [address] | | + + + + + Care Team Providers + +------+ + | Care Newspaper Illustrator Name | Role | Phone | + +------+ + | No, Physician | PCP | Unavailable | + +------+ + Allergies [...] | + + + + + + Medications + + + +---------+------+------+-------+ | Medication | Sig | Dispensed | Refills | Star | End | Statu | | | | | | t | Date | s | | | | | | Date | | | + + + +---------+------+------+-------+ | Lactobacillus | Take 1 capsule by | | 0 | | | Activ | | (PROBIOTIC | mouth Daily. | | | | | e | | ACIDOPHILUS PO) | | | | | | | + + + +---------+------+------+-------+ | Multiple | Take 1 tablet by | | 0 | | | Activ | | Vitamins-Minerals | mouth Daily. | | | | | e | | (HAIR SKIN AND NAILS | | | | | | | | FORMULA PO) | | | | | | | + + + +---------+------+------+-------+ | | Take 1-2 tablets by | 30 | 0 | 03/3 | | Activ | | oxyCODONE-acetaminop | mouth every 6 hours | tablet | | 0/20 | | e | | hen (PERCOCET) 5-325 | as needed for Pain. | | | 18 | | | | mg per tablet | | | | | | | + + + +---------+------+------+-------+ +---+ + | | Additional | | | InformationPatient | | | not taking. Reported | | | on 03/17/2018 3:43 | | | PM | +---+ + Active Problems + + + | Problem | Noted Date | + + + | Acute pancreatitis | 02/26/2018 | + + + Immunizations + + + + | Name | Administration Dates | Next Due | + + + + | RHO (D) IMMUNE | 08/01/2012 | | | GLOBULIN | | | + + + + | TDAP, (ADOL/ADULT) | 10/27/2012 | | + + + + Family History + + +------+ + | Medical History | Relation | Name | Comments | + + +------+ + | Cancer | Mother | | breast | + + +------+ + + +------+--------+ + | Relation | Name | Status | Comments | + +------+--------+ + | Mother | | | | + +------+--------+ + Social History + +-------+ +--------+------+ | [...] recent travel history available. | + + Last Filed Vital Signs + [...] | | + + + + + Plan of Treatment [...] Results Not on filefrom Last 3 Months Advance Directives + + + + + | Type | Date Recorded | Patient | Explanation | | | | Hematology Technologist | | + + + + + | Power of | | | | | Customer Experience Analyst | | | | + + + + + | Advance | 03/17/2018 5:32 | | | | Directive | PM | | | + + + + + + + + + + | Code Status | Date | Date | Comments | | | Activated | Inactivated | | + + + + + | Full Code | 02/26/2018 | 02/28/2018 | | | | 11:42 PM | 9:11 PM | | + + + + +
[~2020-04-07 00:02] MED LIST: IBUPROFEN200 MG PO; ROBITUSSIN COU1 EACH PO; ZITHROMAX250 MG PO
--- NOTE | 2020-04-07 13:08 | PR ---
[facility] [address], [place] [address] Signed Progress Notes IP Datetime Report Generated by ZACHARIAH: 04/07/2020 13:08 PROGRESS NOTES: [id number] Impression: Reassuring heart rate; Slow Progression of Labor Procedures: Intrauterine Pressure Catheter; Scalp Electrode; Sterile Vag Exam Other Plans: probable augmentation Informed Consent Obtain: Vaginal Delivery; Induction of Labor; Risks, Benefits and Alternatives Discussed VITAL SIGNS: [id number] Vital Signs: Reviewed; Within Normal Limits VS Notable Details: mild HTN EXAM: [id number] Dilatation: 4.0 Effacement: 90 Station: -2 Uterine Contractions: q 3 to 4 min MEMBRANES: [id number] Membrane Status: Intact Comments: Slow progress. Suspect inadequate contractions. Will place IUPC and FSE and observe. Position changes may also be helpful. Fetus A: [id number] FHR Baseline: 140 Variability: Moderate 6-25bpm Accelerations: 15X15 Decelerations: None FHR Category: Category I Presentation: Vertex Comments on Fetus A: No evidence of metabolic acidosis Fetus B: [id number] Signing Physician: Linnette Dawson MD Copies: ~ *Electronically Signed* 04/07/20 1308 LINNETTE DAWSON MD PATIENT NAME: RAJANI DANIEL VENUS PROGRESS NOTE DATE OF : 87 PHYSICIAN: LINNETTE DAWSON MD RPT #: [id number] REPORT IS CONFIDENTIAL AND NOT TO BE RELEASED WITHOUT AUTHORIZATION
--- NOTE | 2020-04-08 08:43 | PR ---
[facility] [address] [place] [address] [place], [place] [address] Signed PP Progress Notes Datetime Report Generated by ZACHARIAH: 04/08/2020 08:43 SUBJECTIVE: [id number] Pain: Within normal limits Vital Signs: [id number] Vital Signs: Reviewed; Within Normal Limits EXAM: [id number] Cardiovascular: Not Done Respiratory: Not Done Abdomen/Uterus: Abnormal Lochia: Normal Vulva/Perineum: Not Done Breasts: Not Done CVA Tenderness: Not Done Extremities: Normal Incision: Not Applicable Progress: Normal Exam Comments: Fundus firm, NT @ U-1. H/H 11/33.5, WBC 16.1, plat 339k IMPRESSION/PLAN/PROCEDURES: [id number] Impression: Normal progression Plan: Discharge Procedures: Rhogam Progress Notes: Doing well. She desires discharge later today if possible. Signing Physician: Linnette Dawson MD Copies: ~ *Electronically Signed* 04/08/2043 LINNETTE DAWSON MD PATIENT NAME: RAJANI [facility]EL [facility] PROGRESS NOTE DATE OF : 87 PHYSICIAN: LINNETTE DAWSON MD RPT #: [id number] REPORT IS CONFIDENTIAL AND NOT TO BE RELEASED WITHOUT AUTHORIZATION
== END 2020-04-08 20:20 | disposition home or self-care (01) | DRG 807 ==
LOC: FBC 00:02
PROVIDERS: ADMIT Obstetrics & Gynecology
PROC: 10E0XZZ Delivery of Products of Conception, External Approach (ICD-10-PCS; principal; 2020-04-07)
PROC: 0KQM0ZZ Repair Perineum Muscle, Open Approach (ICD-10-PCS; 2020-04-07)
PROC: 10H07YZ Insertion of Other Device into Products of Conception, Via Natural or Artificial Opening (ICD-10-PCS; 2020-04-07)
PROC: 3E0P7VZ Introduction of Hormone into Female Reproductive, Via Natural or Artificial Opening (ICD-10-PCS; 2020-04-07)
PROC: 10907ZC Drainage of Amniotic Fluid, Therapeutic from Products of Conception, Via Natural or Artificial Opening (ICD-10-PCS; 2020-04-07)
PROC: 00HU33Z Insertion of Infusion Device into Spinal Canal, Percutaneous Approach (ICD-10-PCS; 2020-04-07)
PROC: 3E0R3BZ Introduction of Anesthetic Agent into Spinal Canal, Percutaneous Approach (ICD-10-PCS; 2020-04-07)
PROC: 3E0234Z Introduction of Serum, Toxoid and Vaccine into Muscle, Percutaneous Approach (ICD-10-PCS; 2020-04-08)
DX: O24.420 Gestational diabetes mellitus in childbirth, diet controlled (principal); Z37.0 Single live birth; Z3A.39 39 weeks gestation of pregnancy; O36.63X0 Maternal care for excessive fetal growth, third trimester, not applicable or unspecified; O69.81X0 Labor and delivery complicated by cord around neck, without compression, not applicable or unspecified; O70.1 Second degree perineal laceration during delivery; O26.893 Other specified pregnancy related conditions, third trimester; O99.214 Obesity complicating childbirth; E66.01 Morbid (severe) obesity due to excess calories; Z88.0 Allergy status to penicillin; Z67.11 Type A blood, Rh negative
CPT/HCPCS: 36415; 82803; 83030; 85027; 86850; 86900; 86901; A9270; J2590; J2790; J2795; J7121

== ENCOUNTER 2022-08-06 08:11 | Emergency (ER) | payer OTHER ==
[~2022-08-06] VITALS: Ht 167.6 cm; Wt 129.3 kg
[2022-08-06] MEDS ORDERED: LIDOCAINE HCL100 ML MT (08:42)
[2022-08-06] MEDS ORDERED: PREDNISONE20 MG PO (16:11)
== END 2022-08-06 16:19 | disposition home or self-care (01) ==
LOC: ED 08:11
DX: J02.9 Acute pharyngitis, unspecified (principal); Z20.822 Contact with and (suspected) exposure to COVID-19; Z79.52 Long term (current) use of systemic steroids
CPT/HCPCS: 36415; 70491; 80053; 84703; 85025; 87502; 99284-25; C9803; J1100; Q9967; U0003